=== PATIENT | female | born 1955 | race Caucasian/White ===

== ENCOUNTER 2017-12-04 08:22 | Outpatient (CLI) ==
--- NOTE | 2017-12-04 09:10 | MAMMO ---
EXAM: Bilateral digital screening mammogram (2-D and 3-D) History: Screening Comparison: Bilateral mammogram 03/16/2014 Findings: MLO and CC views of bilateral breasts demonstrate scattered fibroglandular breast parenchy ma. Stable bilateral breast implants. CAD was reviewed by the radiologist. Tomosynthesis was perfo rmed. Stable benign calcifications within the left breast. There is a new asymmetry seen in the sup erior posterior left breast near the axilla and only seen on the MLO view. No suspicious microcalcif ications. Impression: New left breast asymmetry seen only on the MLO view is indeterminate. Recommend further evaluation with spot compression views with tomosynthesis. BIRADS 0
--- NOTE | 2017-12-04 10:53 | DI ---
EXAM: Three views of the left hand. History: Left hand pain. Findings: No acute fracture or dislocation. No abnormal calcifications or radiopaque foreign bodies . Joint spaces are relatively preserved. Impression: No acute osseous abnormality and no significant degenerative joint disease.
== END 2017-12-04 08:23 | disposition home or self-care (01) ==
LOC: RAD 08:22
PROVIDERS: ATTEND Internal Medicine
DX: Z12.31 Encounter for screening mammogram for malignant neoplasm of breast (principal); M79.642 Pain in left hand; M79.645 Pain in left finger(s)
CPT/HCPCS: 77067

== ENCOUNTER 2017-12-11 10:18 | Outpatient (CLI) ==
--- NOTE | 2017-12-11 12:23 | MAMMO ---
EXAM: Begin diagnostic left breast mammogram HISTORY: Left breast asymmetry COMPARISON: None FINDINGS: Digital diagnostic left breast mammogram with MLO view was performed. Tomosynthesis was p erformed. There is a left breast implant. The previously seen asymmetry is no longer present and re presents superimposed fibroglandular tissue. IMPRESSION: Negative left breast mammogram. Annual screening is recommended 1 year. BIRADS category 1, negative
== END 2017-12-11 10:19 | disposition home or self-care (01) ==
LOC: RAD 10:18
PROVIDERS: ATTEND Internal Medicine
DX: N64.89 Other specified disorders of breast (principal)

== ENCOUNTER 2022-04-19 19:51 | Inpatient (IN) ==
[2022-04-19] MEDS ORDERED: SOLU-MEDROL 40 MG IVP STA (20:18)
[2022-04-19] MEDS ORDERED: DUONEB NEB STA (20:18)
[2022-04-19] MEDS ORDERED: ROCEPHIN 1 GM/50 ML D5W 1 GM/50 ML BAG IV ONE (20:18)
--- NOTE | 2022-04-19 20:23 | ED.PDOC ---
General ED Provider: Dr. MEAGAN FUENTES Chief Complaint: Respiratory Complaint Stated Complaint: halley got a cough and my temp is up to 101 Time Seen by Provider: 04/19/22 20:21 Mode of Arrival: Walk-In Information Source: Patient Exam Limitations: No limitations Primary Care Provider: SEBASTIEN QUINTANILLA MD Nursing and Triage Documentation Reviewed and Agree: Yes Does patient meet sepsis criteria?: No System Inflammatory Response Syndrome: Temp 101F or Greater and Pulse >90 BPM Sepsis Protocol: For patient's 13 years and over: Temp is 96.8 and below OR 101 and greater Pulse >90 BPM Resp >20/minute Acutely Altered Mental Status Are patient's symptoms suggestive of a new infection, such as: -Pneumonia -Skin, Soft Tissue -Endocarditis -UTI -Bone, Joint Infection -Implantable Device -Acute Abdominal Infection -Wound Infection -Meningitis -Blood Stream Catheter Infection -Unknown Respiratory Complaint Exam Respiratory Complaint/Exam Onset/Duration: 4 days Symptoms Are: Still present Timing: Constant Initial Severity: Mild Current Severity: Moderate Location: Chest Character: Reports Productive cough Aggravating: Reports URI Alleviating: Reports Bronchodilators Associated Signs and Symptoms: Reports Fever, Chills and URI History of Healthcare-Acquired Pneumonia: No Home Oxygen Use: No Recent Stress Test: No Recent Echo/LV Function: No Current Antibiotic Use: No Current Asthma Medication Use: No Respiratory Distress: None Inadequate Respiratory Effort: No Dysphagia Present: No Stridor Present: No JVD Present: No Accessory Muscle Use: No Retractions: Not Present Diminished Breath Sounds: No Sinus Tenderness: None Grunting Respirations: No Kussmaul Respirations: No Differential Diagnoses: Pneumonia Non-Traumatic Chest Pain Syncope: EKG Performed Review of Systems Review Of Systems Constitutional: Reports Chills and Fever Eyes: Reports No symptoms Ears, Nose, Mouth, Throat: Reports No symptoms Respiratory: Reports Cough Cardiac: Reports No symptoms GI: Reports No symptoms : Reports No symptoms Musculoskeletal: Reports No symptoms Skin: Reports No symptoms Neurological: Reports No symptoms Endocrine: Reports No symptoms Hematologic/Lymphatic: Reports No symptoms All Other Systems: Reviewed and Negative PFSH Female Reproductive History Menstrual Hx Hysterectomy: Yes (1979) Hx Tubal Ligation: No Physical Exam Physical Exam Appearance: Reports Ill-appearing Ill-appearing: Mild Pain Distress: Mild Eyes: Reports PAVEL, EOMI and Conjunctiva clear ENT: Reports Ears normal, Nose normal and Oropharynx normal Neck: Supple Respiratory: Reports Airway patent, Breath sounds clear and Breath sounds equal Cardiovascular: Reports RRR, Pulses normal, No rub and No murmur GI/: Reports Soft, Nontender and No masses Musculoskeletal: Reports Normal strength, ROM intact, No edema and No calf tenderness Skin: Reports Warm, Dry and Normal color Neurological: Reports Sensation intact, Motor intact, Reflexes intact, Cranial nerves intact, Alert and Oriented Psychiatric: Reports Affect appropriate and Mood appropriate Interpretation Radiology Interpretation Radiology Interpretation By: Radiologist Radiology Results: Positive Exam Interpreted: CT Scan EKG Interpretation Time of EKG #1: 20:47 Rate: Tachy Rhythm: Sinus Ectopy: None Delta: NL ST Segment: Normal Interpretation: sinus tachycardia Physician Notification Case Discussed Physician Notified: dr [email or web address] Time of Notification: 22:19 Critical Care Note Critical Care Note Total Critical Care Time (mins): 0 Course Course Hematology/Chemistry: 04/19/22 20:30 04/19/22 20:30 Orders, Labs, Meds: Lab Review 04/19/22 04/19/22 04/19/22 20:30 20:30 20:30 WBC 6.77 RBC 4.59 Hgb 13.3 Hct 41.8 MCV 91.1 MCH 29.0 MCHC 31.8 RDW Coeff of Sade 13.2 Plt Count 203 Immature Gran % (Auto) 0.1 Neut % (Auto) 66.5 Lymph % (Auto) 21.1 [place] % (Auto) 8.7 Eos % (Auto) 3.2 Baso % (Auto) 0.4 Neut # (Auto) 4.5 Lymph # (Auto) 1.4 [place] # (Auto) 0.6 Eos # (Auto) 0.2 Baso # (Auto) 0.0 Immature Gran # (Auto) 0.0 Sodium 140.7 Potassium 3.52 Chloride 104.7 Carbon Dioxide 29.4 Anion Gap 10.12 BUN 18.6 H Creatinine 0.76 Estimated GFR (MDRD) 76.00 BUN/Creatinine Ratio 24.47 Glucose 123.6 H Lactic Acid 1.44 Calcium 8.80 Total Bilirubin 0.41 AST 53.1 H ALT 35.4 H Alkaline Phosphatase 110.2 Total Protein 7.74 Albumin 4.45 Globulin 3.29 Albumin/Globulin Ratio 1.35 Procalcitonin Influ A Molecular Assay Influ B Molecular Assay SARS CoV-2 RNA Rapid KRISTEL 04/19/22 04/19/22 04/19/22 20:30 20:45 20:45 WBC RBC Hgb Hct MCV MCH MCHC RDW Coeff of Sade Plt Count Immature Gran % (Auto) Neut % (Auto) Lymph % (Auto) [place] % (Auto) Eos % (Auto) Baso % (Auto) Neut # (Auto) Lymph # (Auto) [place] # (Auto) Eos # (Auto) Baso # (Auto) Immature Gran # (Auto) Sodium Potassium Chloride Carbon Dioxide Anion Gap BUN Creatinine Estimated GFR (MDRD) BUN/Creatinine Ratio Glucose Lactic Acid Calcium Total Bilirubin AST ALT Alkaline Phosphatase Total Protein Albumin Globulin Albumin/Globulin Ratio Procalcitonin < 0.05 Influ A Molecular Assay Negative by naat Influ B Molecular Assay Negative by naat SARS CoV-2 RNA Rapid KRISTEL Negative Orders Category Date Time Status ABG DRAW REQUEST Stat CARDIO 04/19/22 20:17 Completed EKG-(ED ONLY) Stat CARDIO 04/19/22 20:17 Completed NEBULIZER TREATMENT Stat CARDIO 04/19/22 20:19 Completed ED GED INSTRUCTOR APPLIED .ONCE EMERGENCY 04/19/22 20:17 Active ED IV/MEDIPORT/POWERPORT .ONCE EMERGENCY 04/19/22 20:17 Active ABG COOX Stat LAB 04/19/22 20:17 Ordered BLOOD CULTURE (ED ONLY) Stat LAB 04/19/22 20:30 Received CBC W/ AUTO DIFF Stat LAB 04/19/22 20:30 Completed COMPREHENSIVE METABOLIC PANEL Stat LAB 04/19/22 20:30 Completed FLU A/B MOLECULAR Stat LAB 04/19/22 20:45 Completed LACTIC ACID Stat LAB 04/19/22 20:30 Completed PROCALCITONIN Stat LAB 04/19/22 20:30 Completed SARS COV-2 RNA RAPID KRISTEL Stat LAB 04/19/22 20:45 Completed 0.9 % Sodium Chloride [Saline Flush] MEDS 04/19/22 20:17 Active 1 syr IVF PRN PRN Acetaminophen [Tylenol] MEDS 04/19/22 21:29 Discontinued 650 mg PO ONCE ONE Ceftriaxone/D5w 1 gm Premix [Rocephin 1 gm/50 ml D5w] MEDS 04/19/22 20:18 Discontinued 1 gm in 50 ml IV ONCE Ipratropium/Albuterol Neb [Duoneb] MEDS 04/19/22 20:18 Discontinued 3 ml NEB ONCE STA Methylprednisolone Sod Succ/Pf [Solu-Medrol 40 mg] MEDS 04/19/22 20:18 Discontinued 40 [address]P ONCE STA CT CHEST W/O CONTRAST Stat RADS 04/19/22 20:18 Completed Medications Generic Name Dose Route Start Last Admin Trade Name Freq PRN Reason Stop Dose Admin Sodium Chloride 1 syr 04/19/22 20:17 0.9% Sodium Chloride 10 Ml Disp.Syrin IVF PRN PRN To flush IV Discontinued Medications Generic Name Dose Route Start Last Admin Trade Name Freq PRN Reason Stop Dose Admin Acetaminophen 650 mg 04/19/22 21:29 04/19/22 21:34 Acetaminophen 325 Mg Tablet PO 04/19/22 21:30 650 mg ONCE ONE Administration Albuterol/Ipratropium 3 ml 04/19/22 20:18 04/19/22 20:52 Ipratropium/Albuterol Vial.Neb NEB 04/19/22 20:19 3 ml ONCE STA Administration CEFTRIAXONE/D5W 1 GM PREMIX 1 gm in 50 mls @ 75 mls/hr 04/19/22 20:18 04/19/22 21:14 Rocephin 1 Gm/50 Ml D5w IV 04/19/22 20:57 75 mls/hr ONCE ONE Administration Methylprednisolone Sodium Succinate 40 mg 04/19/22 20:18 04/19/22 21:14 Methylprednisolone Sod Succ/Pf 40 Mg/Ml Vial IVP 04/19/22 20:19 40 mg ONCE STA Administration Vital Signs: Temp Pulse Resp BP Pulse Ox 04/19/22 21:22 101.8 F H 04/19/22 20:02 99.1 F 108 H 20 155/78 H 94 L Discharge Plan Discharge Patient Disposition: ADMITTED INPATIENT Discharge Problem: Community acquired bacterial pneumonia Prescriptions: No Action lansoprazole 15 mg Capsule,Delayed Release(Dr/Ec) 15 mg PO DAILY ondansetron 4 mg tablet,disintegrating 4 mg PO Q8H PRN (Reason: nausea and vomiting) Qty: 20 0RF multivitamin Tablet 1 tab PO QAM hydrocodone-acetaminophen 5-325 mg tablet 1 tab PO DAILY aspirin 81 mg Tablet,Delayed Release (Dr/Ec) 81 mg PO DAILY tramadol 50 mg Tablet 50 mg PO BID PRN (Reason: Pain) ezetimibe 10 mg tablet 10 mg PO DAILY cholecalciferol (vitamin D3) [Vitamin D3] 50 mcg (2,000 unit) Tablet 50 mcg PO DAILY Ozempic 0.25 mg or 0.5 mg(2 mg/1.5 mL) pen injector 0.5 mg SUBCUT WEEKLY Did you review [place] CELLAR SUPERVISOR for ALL controlled substances?: Not Applicable ED Provider: MEAGAN ALVARES Condition: Good Physician Progress Note: []
[2022-04-19 20:39] LABS: BASOPHILS % (AUTO) 0.4 % (0.0-3.0); EOSINOPHILS # (AUTO) 0.2 K/ul (0.0-0.7); EOSINOPHILS % (AUTO) 3.2 % (0.0-7.0); HEMATOCRIT 41.8 % (37.0-47.0); HEMOGLOBIN 13.3 g/dl (12.0-16.0); IMMATURE GRANULOCYTE % (AUTO) 0.1 % (0.0-5.0); LYMPHOCYTES # (AUTO) 1.4 K/uL (0.60-3.4); LYMPHOCYTES % (AUTO) 21.1 (10.0-50.0); MEAN CORPUSCULAR HGB CONC 31.8 (31.8-35.4); MEAN CORPUSCULAR VOLUME 91.1 fl (81.0-99.0); MONOCYTES # (AUTO) 0.6 K/uL (0.4-2.0); MONOCYTES % (AUTO) 8.7 (0-10); NEUTROPHILS # (AUTO) 4.5 K/ul (2.0-6.9); NEUTROPHILS % (AUTO) 66.5 % (42.2-75.2); PLATELET COUNT 203 10^3/uL (140-440); RDW COEFFICIENT OF VARIATION 13.2 % (11.6-14.8); RED BLOOD COUNT 4.59 10^6/ul (4.20-5.40); WHITE BLOOD COUNT 6.77 K/ul (4.6-10.2)
[2022-04-19 20:52] LABS: ALANINE AMINOTRANSFERASE 35.4 U/L (0-35); ALBUMIN 4.45 g/dL (3.5-5.0); ALKALINE PHOSPHATASE 110.2 U/L (53-141); ASPARTATE AMINO TRANSFERASE 53.1 U/L (14-36); BILIRUBIN,TOTAL 0.41 mg/dL (0.2-1.3); BLOOD UREA NITROGEN 18.6 mg/dL (7-17); CALCIUM 8.8 mg/dL (8.4-10.2); CARBON DIOXIDE 29.4 mmol/L (22-30.0); CHLORIDE 104.7 mmol/L (98-107); CREATININE 0.76 mg/dL (0.60-1.30); GLUCOSE 123.6 mg/dL (74-106); POTASSIUM 3.52 mmol/L (3.5-5.1); SODIUM 140.7 mmol/L (134.5-145); TOTAL PROTEIN 7.74 g/dL (6.3-8.2)
--- NOTE | 2022-04-19 21:06 | CT ---
EXAM: CHEST CT WITHOUT CONTRAST HISTORY: Cough, fever TECHNIQUE: CT acquisition of the chest from the thoracic inlet to the upper abdomen without IV contra st administration. CT Dose Reduction Techniques Performed: Yes COMPARISON: None available FINDINGS: Lines, Tubes, Devices: None. Lung Parenchyma and Airways: Central airways are patent without endobronchial lesion. Left upper lobe and lower lobe tree mid nodularity is identified with mild upper lobe patchy consolid ation. Pleural Space: No pleural effusion. No pleural thickening. No pneumothorax. Thoracic Inlet, Mediastinum, and Geraldine: Thyroid gland is normal appearance. No lymphadenopathy. Heart, Vessels, and Pericardium: Normal heart size. No pericardial effusion or pericardial thickening. Mild atherosclerotic calcific ations including coronary arteries. Bones and Soft Tissues: Mild degenerative disc disease. Bilateral breast implants. Upper Abdomen: Small hiatal hernia with mild wall thickening at the GE junction. Status post cholecys tectomy. IMPRESSION: Left lung small airway infection/inflammation with mild superimposed left upper lobe pneumonia. Small hiatal hernia with wall thickening at the GE junction. Recommend follow-up endoscopy to exclud e a mucosal lesion. All CT scans are performed using dose optimization techniques as appropriate to the performed exam an d include at least one of the following: Automated exposure control, adjustment of the mA and/or kV according t o size, and the use of iterative reconstruction technique.
[2022-04-19 21:26] LABS: MOLECULAR FLU A NEGATIVE BY NAAT (NEGATIVE); MOLECULAR FLU B NEGATIVE BY NAAT (NEGATIVE)
[2022-04-19] MEDS ORDERED: TYLENOL PO ONE (21:29)
[2022-04-19 21:42] LABS: SARS COV-2 RNA RAPID NAAT NEGATIVE (NEGATIVE)
[2022-04-19] MEDS ORDERED: ULTRAM PO PRN (22:24)
[2022-04-20] MEDS ORDERED: ATROPINE SULFATE PFS IVP PRN (00:05)
[2022-04-20] MEDS ORDERED: NITROSTAT SL PRN (00:05)
[2022-04-20 00:14] VITALS: BMI 25.7
[2022-04-20 00:32] LABS: BILIRUBIN,URINE Negative (NEGATIVE); CLARITY,URINE Clear (CLEAR); COLOR,URINE Yellow (YELLOW); GLUCOSE, URINE (UA) Negative (NEGATIVE); KETONES,URINE Negative (NEGATIVE); LEUKOCYTE ESTERASE ,URINE Negative (NEGATIVE); NITRITE,URINE Negative (NEGATIVE); PH,URINE 5.5 (5-9); PROTEIN,URINE Negative (NEGATIVE); URINE, BLOOD Negative (NEGATIVE); UROBILINOGEN,URINE 0.2 (0.2)
[2022-04-20] MEDS: DUONEB NEB SCH ×5 (04:55→20:30)
[2022-04-20 06:11] LABS: BASOPHILS % (AUTO) 0.1 % (0.0-3.0); HEMATOCRIT 38.9 % (37.0-47.0); HEMOGLOBIN 12.6 g/dl (12.0-16.0); IMMATURE GRANULOCYTE % (AUTO) 0.3 % (0.0-5.0); LYMPHOCYTES # (AUTO) 0.6 K/uL (0.60-3.4); LYMPHOCYTES % (AUTO) 8.1 (10.0-50.0); MEAN CORPUSCULAR HEMOGLOBIN 29.1 pg (27.0-31.0); MEAN CORPUSCULAR HGB CONC 32.4 (31.8-35.4); MEAN CORPUSCULAR VOLUME 89.8 fl (81.0-99.0); MONOCYTES # (AUTO) 0.1 K/uL (0.4-2.0); MONOCYTES % (AUTO) 1.3 (0-10); NEUTROPHILS # (AUTO) 6.1 K/ul (2.0-6.9); NEUTROPHILS % (AUTO) 90.2 % (42.2-75.2); PLATELET COUNT 187 10^3/uL (140-440); RED BLOOD COUNT 4.33 10^6/ul (4.20-5.40); WHITE BLOOD COUNT 6.76 K/ul (4.6-10.2)
[2022-04-20 06:22] LABS: ALANINE AMINOTRANSFERASE 34.3 U/L (0-35); ALBUMIN 4.17 g/dL (3.5-5.0); ALKALINE PHOSPHATASE 100.7 U/L (53-141); ASPARTATE AMINO TRANSFERASE 54.8 U/L (14-36); BILIRUBIN,TOTAL 0.47 mg/dL (0.2-1.3); BLOOD UREA NITROGEN 17.4 mg/dL (7-17); CALCIUM 8.67 mg/dL (8.4-10.2); CARBON DIOXIDE 26.5 mmol/L (22-30.0); CHLORIDE 108.2 mmol/L (98-107); CREATININE 0.58 mg/dL (0.60-1.30); POTASSIUM 3.84 mmol/L (3.5-5.1); SODIUM 140.7 mmol/L (134.5-145); TOTAL PROTEIN 7.25 g/dL (6.3-8.2)
[2022-04-20 07:13] LABS: ABG PH 7.47 (7.35-7.45); HCO3 27.7 (21-28)
[2022-04-20 07:14] LABS: ABG O2 HGB 95.7 % (95-100); COHb 1.1 (0.5-1.5); MetHb 0.9 (0-1.5); TCO2 28.9 (19-24); sO2 96.7 % (94-98)
[2022-04-20] MEDS: TESSALON PERLES PO PRN (07:26)
[2022-04-20] MEDS: TYLENOL PO PRN (07:31)
[2022-04-20] MEDS: SOLU-MEDROL 40 MG IVP SCH ×2 (08:30→21:24)
[2022-04-20] MEDS ORDERED: NORCO 5-325 PO SCH (09:00)
[2022-04-20] MEDS: ASPIRIN EC PO SCH (09:01)
[2022-04-20] MEDS: ZETIA PO SCH (09:01)
[2022-04-20] MEDS: VITAMIN D PO SCH (09:01)
[2022-04-20] MEDS: LOVENOX SUBCUT SCH (09:01)
[2022-04-20] MEDS: PROTONIX PO SCH (09:01)
[2022-04-20] MEDS: DOXY-100 100 MG in SODIUM CHLORIDE 100ML 100 ML IV SCH ×4 (09:02→21:13)
[2022-04-20] MEDS: PHENERGAN WITH CODEINE 6.25/10 MG/5 ML PO PRN ×2 (13:41→21:16)
[2022-04-20] MEDS: CARDIZEM PO SCH (20:07)
[2022-04-20] MEDS: ROCEPHIN 1 GM/50 ML D5W 1 GM/50 ML BAG IV SCH (20:07)
[2022-04-21] MEDS: DUONEB NEB SCH ×4 (05:18→20:45)
[2022-04-21 05:38] LABS: BASOPHILS % (AUTO) 0.1 % (0.0-3.0); EOSINOPHILS % (AUTO) 0.1 % (0.0-7.0); HEMOGLOBIN 12.4 g/dl (12.0-16.0); IMMATURE GRANULOCYTE # (AUTO) 0.1 (0.0-1.0); IMMATURE GRANULOCYTE % (AUTO) 0.7 % (0.0-5.0); LYMPHOCYTES # (AUTO) 0.9 K/uL (0.60-3.4); LYMPHOCYTES % (AUTO) 8.6 (10.0-50.0); MEAN CORPUSCULAR HEMOGLOBIN 29.5 pg (27.0-31.0); MEAN CORPUSCULAR HGB CONC 32.6 (31.8-35.4); MEAN CORPUSCULAR VOLUME 90.5 fl (81.0-99.0); MONOCYTES # (AUTO) 0.6 K/uL (0.4-2.0); MONOCYTES % (AUTO) 5.5 (0-10); NEUTROPHILS # (AUTO) 8.5 K/ul (2.0-6.9); PLATELET COUNT 217 10^3/uL (140-440); RDW COEFFICIENT OF VARIATION 13.2 % (11.6-14.8)
[2022-04-21] MEDS: PHENERGAN WITH CODEINE 6.25/10 MG/5 ML PO PRN ×3 (05:52→20:37)
[2022-04-21 05:53] LABS: ALANINE AMINOTRANSFERASE 31.7 U/L (0-35); ALBUMIN 3.93 g/dL (3.5-5.0); ALKALINE PHOSPHATASE 92.4 U/L (53-141); ASPARTATE AMINO TRANSFERASE 41.4 U/L (14-36); BILIRUBIN,TOTAL 0.33 mg/dL (0.2-1.3); BLOOD UREA NITROGEN 20.4 mg/dL (7-17); CALCIUM 8.97 mg/dL (8.4-10.2); CARBON DIOXIDE 26.6 mmol/L (22-30.0); CHLORIDE 108.3 mmol/L (98-107); CREATININE 0.64 mg/dL (0.60-1.30); GLUCOSE 204.8 mg/dL (74-106); POTASSIUM 4.11 mmol/L (3.5-5.1); SODIUM 140.7 mmol/L (134.5-145); TOTAL PROTEIN 6.96 g/dL (6.3-8.2)
[2022-04-21 06:20] LABS: THYROID STIMULATING HORMONE 0.266 uIU/L (0.465-4.68)
[2022-04-21] MEDS ORDERED: SOLU-MEDROL 40 MG IVP SCH (09:00)
[2022-04-21] MEDS: ASPIRIN EC PO SCH (09:42)
[2022-04-21] MEDS: ZETIA PO SCH (09:43)
[2022-04-21] MEDS: VITAMIN D PO SCH (09:43)
[2022-04-21] MEDS: CARDIZEM PO SCH ×2 (09:44→20:38)
[2022-04-21] MEDS: SOLU-MEDROL 125 MG IVP SCH ×2 (09:44→20:38)
[2022-04-21] MEDS: PROTONIX PO SCH (09:44)
[2022-04-21] MEDS: LOVENOX SUBCUT SCH (09:51)
[2022-04-21] MEDS: DOXY-100 100 MG in SODIUM CHLORIDE 100ML 100 ML IV SCH ×2 (09:54→21:30)
--- NOTE | 2022-04-21 10:48 | PCM.PROG ---
Attending Provider: ATTENDING PROVIDER: Dr. SEBASTIEN SMITH MD This patient is seen with Amanda Clay, Nurse Practitioner. DATE OF SERVICE: 04/21/22 SUBJECTIVE: This 66 year old /WHITE F was hospitalized 04/19/22. No fever today. Appetite has improved. Still very wheezy today and short of breath. REVIEW OF SYSTEMS: CONSTITUTIONAL: No night sweats. No fatigue, malaise, lethargy. No fever or chills. HEENT: Eyes: No visual changes. No eye pain. No eye discharge. ENT: No runny nose. No epistaxis. No sinus pain. No odynophagia. No congestion. RESPIRATORY: Cough, no congestion. No hemoptysis. Shortness of breath. Wheezing. CARDIOVASCULAR: No angina symptoms. No CHF symptoms. No atypical chest pain for CAD. No palpitations. No orthopnea.. GASTROINTESTINAL: No abdominal pain. No nausea or vomiting. No diarrhea or constipation. No hematemesis. No hematochezia. GENITOURINARY: No urgency. No frequency. No dysuria. No hematuria. No obstructive symptoms. No discharge. No pain. No significant abnormal bleeding. MUSCULOSKELETAL: No musculoskeletal pain; no joint swelling. NEUROLOGICAL: Awake, alert, oriented to time, place and person. No headache. No neck pain. No syncope. No seizures. No dizziness. PSYCHIATRIC: Not anxious. No depression. No suicidal thoughts. No homicidal thoughts. SKIN: No rash. No lesions. No wounds. ENDOCRINE: No unexplained weight loss. No weight gain. HEMATOLOGIC/LYMPHATIC: No anemia. No purpura. No petechiae. No prolonged or excessive bleeding. No palpable lymph nodes. PHYSICAL EXAMINATION: GENERAL: The patient is awake, alert and oriented, lying in bed in no distress. VITAL SIGNS: Temperature 97.2 F, Pulse 88, Respiratory Rate 18, BP 126/75, Pulse Ox 98% HEENT: Head normocephalic, atraumatic. Eyes: Extraocular muscles are intact. Pupils are equal, round and reactive to light and accommodation. Ears: No lesions. Nose appeared normal. Throat: No exudate or erythema. NECK: Supple. No JVD, no carotid bruit. No lymphadenopathy or thyromegaly. LUNGS: Severely diminished breath sounds with bilateral inspiratory and expiratory wheezing. Rales On the left. Clear to auscultation. Percussion note normal. Chest symmetrical. HEART: S1, S2, no S3. No murmurs. No cyanosis or clubbing. No ascites. Pulses: Dorsalis pedis and posterior tibial pulses +1 to +2 both sides. ABDOMEN: Soft. Non-tender. Bowel sounds active. No CVA tenderness. No mass felt. EXTREMITIES: No edema. Full range of motion of all extremities, equal. NEUROLOGIC: No focal deficit. Cranial nerves II through XII are grossly intact. No headache. No double vision. SKIN: Not dry. Intact. Turgor-normal. LYMPHATIC: No palpable lymph nodes/no lymphedema. MUSCULOSKELETAL: Normal joints with no swelling. Muscle tone is normal. LAB REVIEW: 04/21/22 05:09 04/21/22 05:09 04/21/22 05:09: Free T4 0.97 04/21/22 05:09: Hemoglobin A1c 5.90 04/21/22 05:09: Sodium 140.7, Potassium 4.11, Chloride 108.3 H, Carbon Dioxide 26.6, Anion Gap 9.91, BUN 20.4 H, Creatinine 0.64, Estimated GFR (MDRD) 93.00, BUN/Creatinine Ratio 31.87, Glucose 204.8 H, Calcium 8.97, Total Bilirubin 0.33, AST 41.4 H, ALT 31.7, Alkaline Phosphatase 92.4, Total Protein 6.96, Albumin 3.93, Globulin 3.03, Albumin/Globulin Ratio 1.29, TSH 0.266 L 04/21/22 05:09: WBC 10.00, RBC 4.20, Hgb 12.4, Hct 38.0, MCV 90.5, MCH 29.5, MCHC 32.6, RDW Coeff of Sade 13.2, Plt Count 217, Immature Gran % (Auto) 0.7, Neut % (Auto) 85.0 H, Lymph % (Auto) 8.6 L, [place] % (Auto) 5.5, Eos % (Auto) 0.1, Baso % (Auto) 0.1, Neut # (Auto) 8.5 H, Lymph # (Auto) 0.9, [place] # (Auto) 0.6, Eos # (Auto) 0.0, Baso # (Auto) 0.0, Immature Gran # (Auto) 0.1 ASSESSMENT: Please see below. 1. Left lower pneu 2. Shortness of breath 3. Diabetes mellitus PLAN: 1. Add Pulmicort 0.5mg BID NEB 2. Increase Solu-Medrol 80mg IV Q 12 hours Plan and coordination of the patient's care discussed in the presence of Miter Saw Operator and nurse. SCRIBED BY: Sharon EASLEY scribed while in presence of service performed by Amanda Clay APRN on 04/21/22 ([id number])
[2022-04-21] MEDS ORDERED: OCEAN NASAL SPRAY NAS PRN (11:30)
[2022-04-21] MEDS: NORCO 5-325 PO PRN (15:40)
[2022-04-21] MEDS: ROCEPHIN 1 GM/50 ML D5W 1 GM/50 ML BAG IV SCH (20:41)
[2022-04-21] MEDS: PULMICORT 0.5 MG/2 ML NEB SCH (20:50)
[2022-04-22] MEDS: DUONEB NEB SCH ×4 (04:55→19:20)
[2022-04-22] MEDS: PULMICORT 0.5 MG/2 ML NEB SCH ×2 (04:55→19:20)
[2022-04-22 05:12] LABS: BASOPHILS % (AUTO) 0.1 % (0.0-3.0); HEMATOCRIT 36.1 % (37.0-47.0); HEMOGLOBIN 11.5 g/dl (12.0-16.0); IMMATURE GRANULOCYTE # (AUTO) 0.1 (0.0-1.0); IMMATURE GRANULOCYTE % (AUTO) 1.1 % (0.0-5.0); LYMPHOCYTES # (AUTO) 1.1 K/uL (0.60-3.4); LYMPHOCYTES % (AUTO) 11.1 (10.0-50.0); MEAN CORPUSCULAR HGB CONC 31.9 (31.8-35.4); MEAN CORPUSCULAR VOLUME 90.9 fl (81.0-99.0); MONOCYTES # (AUTO) 0.5 K/uL (0.4-2.0); MONOCYTES % (AUTO) 4.7 (0-10); NEUTROPHILS # (AUTO) 8.4 K/ul (2.0-6.9); PLATELET COUNT 204 10^3/uL (140-440); RDW COEFFICIENT OF VARIATION 13.1 % (11.6-14.8); RED BLOOD COUNT 3.97 10^6/ul (4.20-5.40); WHITE BLOOD COUNT 10.13 K/ul (4.6-10.2)
[2022-04-22 05:39] LABS: ALANINE AMINOTRANSFERASE 49.7 U/L (0-35); ALBUMIN 3.63 g/dL (3.5-5.0); ASPARTATE AMINO TRANSFERASE 55.9 U/L (14-36); BILIRUBIN,TOTAL 0.24 mg/dL (0.2-1.3); CALCIUM 9.21 mg/dL (8.4-10.2); CARBON DIOXIDE 27.5 mmol/L (22-30.0); CHLORIDE 107.4 mmol/L (98-107); CREATININE 0.69 mg/dL (0.60-1.30); GLUCOSE 257.6 mg/dL (74-106); POTASSIUM 4.22 mmol/L (3.5-5.1); SODIUM 140.2 mmol/L (134.5-145); TOTAL PROTEIN 6.41 g/dL (6.3-8.2)
[2022-04-22] MEDS: PHENERGAN WITH CODEINE 6.25/10 MG/5 ML PO PRN ×2 (07:21→22:44)
[2022-04-22] MEDS: ZETIA PO SCH (09:26)
[2022-04-22] MEDS: DOXY-100 100 MG in SODIUM CHLORIDE 100ML 100 ML IV SCH ×2 (09:26→20:50)
[2022-04-22] MEDS: ASPIRIN EC PO SCH (09:26)
[2022-04-22] MEDS: PROTONIX PO SCH (09:27)
[2022-04-22] MEDS: VITAMIN D PO SCH (09:27)
[2022-04-22] MEDS: CARDIZEM PO SCH ×2 (09:27→20:01)
[2022-04-22] MEDS: LOVENOX SUBCUT SCH (09:29)
--- NOTE | 2022-04-22 09:34 | PCM.PROG ---
Attending Provider: ATTENDING PROVIDER: Dr. SEBASTIEN SMITH MD This patient is seen with Amanda Clay, Nurse Practitioner. DATE OF SERVICE: 04/22/22 SUBJECTIVE: This 66 year old /WHITE F was hospitalized 04/19/22. Did not have a good night. She had lower O2 less than 90% requiring oxygen at 2 liters. Very short of breath and exhausted with any sort of exertion. WBC is back up to 10,000. Having vomiting. We will repeat CT today. REVIEW OF SYSTEMS: CONSTITUTIONAL: No night sweats. No fatigue, malaise, lethargy. No fever or chills. Weakness. HEENT: Eyes: No visual changes. No eye pain. No eye discharge. ENT: No runny nose. No epistaxis. No sinus pain. No odynophagia. No congestion. RESPIRATORY: Cough, no congestion. No hemoptysis. Shortness of breath. CARDIOVASCULAR: No angina symptoms. No CHF symptoms. No atypical chest pain for CAD. No palpitations. No orthopnea.. GASTROINTESTINAL: No abdominal pain. Vomiting. No diarrhea or constipation. No hematemesis. No hematochezia. GENITOURINARY: No urgency. No frequency. No dysuria. No hematuria. No obstructive symptoms. No discharge. No pain. No significant abnormal bleeding. MUSCULOSKELETAL: No musculoskeletal pain; no joint swelling. NEUROLOGICAL: Awake, alert, oriented to time, place and person. No headache. No neck pain. No syncope. No seizures. No dizziness. PSYCHIATRIC: Not anxious. No depression. No suicidal thoughts. No homicidal thoughts. SKIN: No rash. No lesions. No wounds. ENDOCRINE: No unexplained weight loss. No weight gain. HEMATOLOGIC/LYMPHATIC: No anemia. No purpura. No petechiae. No prolonged or excessive bleeding. No palpable lymph nodes. PHYSICAL EXAMINATION: GENERAL: The patient is awake, alert and oriented, lying in bed in no distress. VITAL SIGNS: Temperature 97.8 F, Pulse 85, Respiratory Rate 18, BP 129/80, Pulse Ox 96% HEENT: Head normocephalic, atraumatic. Eyes: Extraocular muscles are intact. Pupils are equal, round and reactive to light and accommodation. Ears: No lesions. Nose appeared normal. Throat: No exudate or erythema. NECK: Supple. No JVD, no carotid bruit. No lymphadenopathy or thyromegaly. LUNGS: Severely diminished breath sounds with rales upper left. Rhonchi on right bilateral expiratory wheezing. Clear to auscultation. Percussion note normal. Chest symmetrical. HEART: S1, S2, no S3. No murmurs. No cyanosis or clubbing. No ascites. Pulses: Dorsalis pedis and posterior tibial pulses +1 to +2 both sides. ABDOMEN: Soft. Non-tender. Bowel sounds active. No CVA tenderness. No mass felt. EXTREMITIES: No edema. Full range of motion of all extremities, equal. NEUROLOGIC: No focal deficit. Cranial nerves II through XII are grossly intact. No headache. No double vision. SKIN: Not dry. Intact. Turgor-normal. LYMPHATIC: No palpable lymph nodes/no lymphedema. MUSCULOSKELETAL: Normal joints with no swelling. Muscle tone is normal. LAB REVIEW: 04/22/22 04:44 04/22/22 04:44 04/22/22 04:44: Sodium 140.2, Potassium 4.22, Chloride 107.4 H, Carbon Dioxide 27.5, Anion Gap 9.52, BUN 26.0 H, Creatinine 0.69, Estimated GFR (MDRD) 85.00, BUN/Creatinine Ratio 37.68, Glucose 257.6 H D, Calcium 9.21, Total Bilirubin 0.24, AST 55.9 H, ALT 49.7 H, Alkaline Phosphatase 88.0, Total Protein 6.41, Albumin 3.63, Globulin 2.78, Albumin/Globulin Ratio 1.30 04/22/22 04:44: WBC 10.13, RBC 3.97 L, Hgb 11.5 L, Hct 36.1 L, MCV 90.9, MCH 29.0, MCHC 31.9, RDW Coeff of Sade 13.1, Plt Count 204, Immature Gran % (Auto) 1.1, Neut % (Auto) 83.0 H, Lymph % (Auto) 11.1, [place] % (Auto) 4.7, Eos % (Auto) 0.0, Baso % (Auto) 0.1, Neut # (Auto) 8.4 H, Lymph # (Auto) 1.1, [place] # (Auto) 0.5, Eos # (Auto) 0.0, Baso # (Auto) 0.0, Immature Gran # (Auto) 0.1 ASSESSMENT: Please see below. 1. Left lobar pneumonia 2. Acute respiratory failure 3. Anemia PLAN: 1. Repeat CT chest with and without 2. Steroids 100mg Q 8 hours 3. Singulair 10mg Plan and coordination of the patient's care discussed in the presence of Ring Conductor and nurse. SCRIBED BY: Sharon EASLEY scribed while in presence of service performed by Amanda Clay APRN on 04/22/22 ([id number])
[2022-04-22] MEDS: SINGULAIR PO SCH (09:53)
[2022-04-22] MEDS: TESSALON PERLES PO PRN ×2 (10:15→16:06)
[2022-04-22] MEDS: SOLU-MEDROL 125 MG IVP SCH ×4 (10:23→21:27)
[2022-04-22] MEDS: SODIUM CHLORIDE 1,000 ML IV SCH (10:50)
[2022-04-22 13:00] LABS: ABG O2 HGB 96.2 % (95-100); ABG PH 7.46 (7.35-7.45); BEecf 3.2 (-2.0-3.0); COHb 1.6 (0.5-1.5); MetHb 0.6 (0-1.5); TCO2 28.2 (19-24); sO2 96.4 % (94-98); tHb 9.1 g/dl (11.7-17.4)
--- NOTE | 2022-04-22 13:17 | CT ---
EXAM: CHEST CT WITH AND WITHOUT INTRAVENOUS CONTRAST HISTORY: Shortness of breath. TECHNIQUE: CT acquisition of the chest from the thoracic inlet to the upper abdomen without and with IV contrast administration. 2-D coronal and sagittal reformatted images were obtained from the axial source images. CT Dose Reduction Techniques Performed: Yes. COMPARISON: None. FINDINGS: Lung Parenchyma and Airways: No significant change in peribronchial nodularity in the left lung. No development of confluent infiltrate. No suspicious pulmonary nodule. The tracheobronchial tree is pa tent. Pleural Space: No pleural effusion or thickening. No pneumothorax. Thoracic Inlet, Mediastinum, and Geraldine: No mass. Stable enlarged right infrahilar lymph node measurin g 1.6 x 1.1 cm. No new or enlarging adenopathy Heart, Vessels, and Pericardium: The main pulmonary artery is normal caliber. There is no central pu lmonary embolism. The thoracic aorta is not dilated. The heart chambers are not enlarged. There is no pericardial effusion or thickening. There are coronary vascular calcifications. Bones and Soft Tissues: Visualized bones are within normal limits. Chest wall soft tissues are unrem arkable. Upper Abdomen: Small hiatal hernia. Cholecystectomy. IMPRESSION: 1. No significant change in left lung bronchopneumonia/bronchiolitis. 2. Stable right infrahilar lymph node. 3. Coronary disease and hiatal hernia. All CT scans are performed using dose optimization techniques as appropriate to the performed exam an d include at least one of the following: Automated exposure control, adjustment of the mA and/or kV according t o size, and the use of iterative reconstruction technique.
--- NOTE | 2022-04-22 16:26 | HP ---
DATE OF SERVICE: 04/19/22 REASON FOR HOSPITALIZATION: Pneumonia HISTORY OF PRESENT ILLNESS: 66 year old white female came to the emergency room with cough, congestion, shortness of breath of nearly 3-4 days duration. The patient had high fever four hours before she came to the emergency room. The patient's fever was 101 in the emergency room. PAST MEDICAL HISTORY: Dyslipidemia Borderline obesity History of esophageal reflux disease Chronic lung disease Hyperglycemia REVIEW OF SYSTEMS: CONSTITUTIONAL: Weakness and fatigue. . HEENT: Eyes: No visual changes. No eye pain. No eye discharge. ENT: No runny nose. No epistaxis. No sinus pain. No sore throat. No odynophagia. No ear pain. No congestion. RESPIRATORY: No hemoptysis. Shortness of breath with cough and congestion. Mostly dry cough. . CARDIOVASCULAR: Shortness of breath. No angina symptoms. No CHF symptoms. No atypical chest pain for CAD. No palpitations. No PND. No orthopnea. GASTROINTESTINAL: Poor appetite for the past 2-3 days. No nausea or vomiting. GENITOURINARY: No urgency. No frequency. No dysuria. No hematuria. No obstructive symptoms. No discharge. No pain. No significant abnormal bleeding. MUSCULOSKELETAL: Weakness and achy feeling. . NEUROLOGICAL: No headache. No neck pain. No syncope. No seizures. No dizziness. PSYCHIATRIC: Not anxious. No depression. No suicidal thoughts. No homicidal thoughts. SKIN: No rash. No lesions. No wounds. ENDOCRINE: No unexplained weight loss. No weight gain. HEMATOLOGIC/LYMPHATIC: No anemia. No purpura. No petechiae. No prolonged or excessive bleeding. No palpable lymph nodes. PERSONAL/FAMILY/SOCIAL HISTORY: Patient is and lives with her . Nonsmoker and no alcohol abuse. She does all activities of daily living. She used to be an RN. MEDICATIONS: Lansoprazole 15 mg Q a.m. Zofran 4 mg Q 8 for nausea Aspirin 81 Ozempic Vitamin D3 Ezetimibe Hydrocodone 5-325 one a day Ozempic 0.5 mg weekly Tramadol 50 mg PO twice a day ALLERGIES: Morphine, Sulfa, Tetanus PHYSICAL EXAMINATION: GENERAL: The patient is oriented to time, place and person. Patient is in no distress. VITAL SIGNS: Temperature 101, pulse 110, respiratory rate 18, blood pressure 110/80, pulse ox 95% HEENT: Head normocephalic, atraumatic. Eyes: Extraocular muscles are intact. Pupils are equal, round and reactive to light and accommodation. Ears: No lesions. Nose appeared normal. Throat: No exudate or erythema. NECK: Supple. No JVD, no carotid bruit. No lymphadenopathy or thyromegaly. LUNGS: Decreased breath sounds with mild expiratory wheeze. . HEART: S1, S2. Tachycardia. ABDOMEN: Soft. EXTREMITIES: No pedal edema. NEUROLOGIC: No focal deficit. Cranial nerves II through XII are grossly intact. No headache, no double vision or headache. SKIN: Not dry. Intact. Turgor - normal. LYMPHATIC: No palpable lymph nodes/no lymphedema. MUSCULOSKELETAL: Normal joints with no swelling. Muscle tone is normal. LABS: Glucose 123 on admission, hemoglobin 13, hematocrit 41, WBC 6,700, normal differential, creatinine 0.7, BUN 18, potassium 3.5, alkaline phosphatase normal. Chest x-ray showed pneumonia, left upper lobe. ASSESSMENT: 1. Community acquired pneumonia seems to be viral 2. History of chronic lung disease 3. Hyperglycemia 4. Dyslipidemia PLAN: 1. Admit patient 2. IV steroids, Rocephin and Doxycycline 3. Telemetry 4. Tessalon Perles for cough 5. Pantoprazole 40 PO Q a.m. 6. Tramadol for pain TIME SPENT: More than 75 minutes. MTDD
[2022-04-22 16:27] LABS: RSV MOLECULAR NEGATIVE BY NAAT (NEGATIVE)
--- NOTE | 2022-04-22 16:34 | PN ---
DATE OF SERVICE: 04/20/22 SUBJECTIVE: 66 year old white female hospitalized with pneumonia. Patient's condition seems to be improved some but she is constantly coughing. Her hydration status has improved. Her appetite is somewhat better. She was unable to rest because of constant coughing. REVIEW OF SYSTEMS: CONSTITUTIONAL: Weakness and fatigue and achy. HEENT: Eyes: No visual changes. No eye pain. No eye discharge. ENT: No runny nose. No epistaxis. No sinus pain. No sore throat. No odynophagia. No congestion. RESPIRATORY: Constant dry cough. CARDIOVASCULAR: No angina symptoms. No CHF symptoms. No atypical chest pain for CAD. No palpitations. No PND. No orthopnea. GASTROINTESTINAL: No abdominal pain. No nausea or vomiting. No diarrhea or constipation. No hematemesis. No hematochezia. GENITOURINARY: No urgency. No frequency. No dysuria. No hematuria. No obstructive symptoms. No discharge. No pain. No significant abnormal bleeding. MUSCULOSKELETAL: No musculoskeletal pain; no joint swelling. NEUROLOGICAL: No headache. No neck pain. No syncope. No seizures. No dizziness. PSYCHIATRIC: Not anxious. No depression. No suicidal thoughts. No homicidal thoughts. SKIN: No rash. No lesions. No wounds. ENDOCRINE: No unexplained weight loss. No weight gain. HEMATOLOGIC/LYMPHATIC: No anemia. No purpura. No petechiae. No prolonged or excessive bleeding. No palpable lymph nodes. PHYSICAL EXAMINATION: GENERAL: The patient is in no distress. VITAL SIGNS: Temperature 97, pulse 80, respiratory rate 18, blood pressure 108/67, pulse ox 95% HEENT: Head normocephalic, atraumatic. Eyes: Extraocular muscles are intact. Pupils are equal, round and reactive to light and accommodation. Ears: No lesions. Nose appeared normal. Throat: No exudate or erythema. NECK: Supple. No JVD, no carotid bruit. No lymphadenopathy or thyromegaly. LUNGS: Decreased breath sounds, mild wheeze. . HEART: S1, S2, no S3. No murmurs. No cyanosis or clubbing. No ascites. Pulses: Dorsalis pedis and posterior tibial pulses +1 to +2 bilaterally. ABDOMEN: Soft. Nontender. Bowel sounds active. No CVA tenderness. No mass felt. EXTREMITIES: No edema. Full range of motion of all extremities, equal. NEUROLOGIC: No focal deficit. Cranial nerves II through XII are grossly intact. No headache. No double vision. SKIN: Not dry. Intact. Turgor - normal. LYMPHATIC: No palpable lymph nodes/no lymphedema. MUSCULOSKELETAL: Normal joints with no swelling. Muscle tone is normal. ASSESSMENT: Pneumonia seems to be stable with some improvement in hydration status. Still coughing which is distressing. Blood sugar was 239, made worse by steroids. PLAN: 1. Will add Phenergan with codeine with Dena Garcia 2. Continue antibiotics and steroids 3. Will continue to monitor blood sugar, do an A1C Condition: Stable TIME SPENT: More than 35 minutes. Plan and coordination of the patient's care discussed in the presence of nurse. JADE
[2022-04-22] MEDS: ROCEPHIN 1 GM/50 ML D5W 1 GM/50 ML BAG IV SCH (20:00)
[2022-04-23] MEDS: PULMICORT 0.5 MG/2 ML NEB SCH ×2 (04:35→20:00)
[2022-04-23] MEDS: DUONEB NEB SCH ×4 (04:35→20:00)
[2022-04-23] MEDS: SOLU-MEDROL 125 MG IVP SCH ×3 (04:59→20:08)
[2022-04-23 05:09] LABS: BASOPHILS % (AUTO) 0.2 % (0.0-3.0); EOSINOPHILS % (AUTO) 0.1 % (0.0-7.0); IMMATURE GRANULOCYTE # (AUTO) 0.3 (0.0-1.0); IMMATURE GRANULOCYTE % (AUTO) 3.1 % (0.0-5.0); LYMPHOCYTES # (AUTO) 1.4 K/uL (0.60-3.4); LYMPHOCYTES % (AUTO) 13.9 (10.0-50.0); MEAN CORPUSCULAR HEMOGLOBIN 29.8 pg (27.0-31.0); MEAN CORPUSCULAR HGB CONC 33.3 (31.8-35.4); MEAN CORPUSCULAR VOLUME 89.4 fl (81.0-99.0); MONOCYTES # (AUTO) 0.5 K/uL (0.4-2.0); MONOCYTES % (AUTO) 5.1 (0-10); NEUTROPHILS # (AUTO) 7.8 K/ul (2.0-6.9); NEUTROPHILS % (AUTO) 77.6 % (42.2-75.2); PLATELET COUNT 201 10^3/uL (140-440); RDW COEFFICIENT OF VARIATION 13.1 % (11.6-14.8); RED BLOOD COUNT 3.69 10^6/ul (4.20-5.40); WHITE BLOOD COUNT 10.11 K/ul (4.6-10.2)
[2022-04-23 05:19] LABS: ALANINE AMINOTRANSFERASE 67.2 U/L (0-35); ALBUMIN 3.51 g/dL (3.5-5.0); ALKALINE PHOSPHATASE 83.6 U/L (53-141); ASPARTATE AMINO TRANSFERASE 50.9 U/L (14-36); BILIRUBIN,TOTAL 0.24 mg/dL (0.2-1.3); BLOOD UREA NITROGEN 28.3 mg/dL (7-17); CALCIUM 8.72 mg/dL (8.4-10.2); CARBON DIOXIDE 27.2 mmol/L (22-30.0); CHLORIDE 107.2 mmol/L (98-107); CREATININE 0.75 mg/dL (0.60-1.30); GLUCOSE 255.1 mg/dL (74-106); POTASSIUM 3.73 mmol/L (3.5-5.1); SODIUM 140.1 mmol/L (134.5-145); TOTAL PROTEIN 6.03 g/dL (6.3-8.2)
[2022-04-23] MEDS: PROTONIX PO SCH (05:33)
[2022-04-23] MEDS: VITAMIN D PO SCH (08:15)
[2022-04-23] MEDS: ZETIA PO SCH (08:17)
[2022-04-23] MEDS: SINGULAIR PO SCH (08:18)
[2022-04-23] MEDS: DOXY-100 100 MG in SODIUM CHLORIDE 100ML 100 ML IV SCH (08:18)
[2022-04-23] MEDS: ASPIRIN EC PO SCH (08:18)
[2022-04-23] MEDS: CARDIZEM PO SCH ×2 (08:22→20:52)
[2022-04-23] MEDS: TYLENOL PO PRN (08:24)
[2022-04-23] MEDS: LOVENOX SUBCUT SCH (08:25)
[2022-04-23] MEDS ORDERED: XANAX PO ONE (10:15)
[2022-04-23] MEDS: TORADOL IVP PRN (10:43)
[2022-04-23] MEDS: PHENERGAN WITH CODEINE 6.25/10 MG/5 ML PO PRN (12:08)
[2022-04-23] MEDS: MUCINEX DM ER 600-30 MG TABLET PO SCH ×2 (12:08→20:52)
--- NOTE | 2022-04-23 14:17 | PN ---
DATE OF SERVICE: 04/21/22 SUBJECTIVE: Patient was seen and examined with the nurse practitioner. Patient has no fever noted. Patient is still coughing. Her overall condition seems to be stable and improving. She has a dry cough. REVIEW OF SYSTEMS: CONSTITUTIONAL: No night sweats. No fatigue, malaise, lethargy. No fever or chills. HEENT: Eyes: No visual changes. No eye pain. No eye discharge. ENT: No runny nose. No epistaxis. No sinus pain. No sore throat. No odynophagia. No congestion. RESPIRATORY: Dry cough. CARDIOVASCULAR: No angina symptoms. No CHF symptoms. No atypical chest pain for CAD. No palpitations. No PND. No orthopnea. GASTROINTESTINAL: No abdominal pain. No nausea or vomiting. No diarrhea or constipation. No hematemesis. No hematochezia. GENITOURINARY: No urgency. No frequency. No dysuria. No hematuria. No obstructive symptoms. No discharge. No pain. No significant abnormal bleeding. MUSCULOSKELETAL: No musculoskeletal pain; no joint swelling. NEUROLOGICAL: No headache. No neck pain. No syncope. No seizures. No dizziness. PSYCHIATRIC: Not anxious. No depression. No suicidal thoughts. No homicidal thoughts. SKIN: No rash. No lesions. No wounds. ENDOCRINE: No unexplained weight loss. No weight gain. HEMATOLOGIC/LYMPHATIC: No anemia. No purpura. No petechiae. No prolonged or excessive bleeding. No palpable lymph nodes. PHYSICAL EXAMINATION: GENERAL: The patient is in no distress. HEENT: Head normocephalic, atraumatic. Eyes: Extraocular muscles are intact. Pupils are equal, round and reactive to light and accommodation. Ears: No lesions. Nose appeared normal. Throat: No exudate or erythema. NECK: Supple. No JVD, no carotid bruit. No lymphadenopathy or thyromegaly. LUNGS: Clear to auscultation. Percussion note normal. Chest symmetrical. HEART: S1, S2, no S3. No murmurs. No cyanosis or clubbing. No ascites. Pulses: Dorsalis pedis and posterior tibial pulses +1 to +2 bilaterally. ABDOMEN: Soft. Nontender. Bowel sounds active. No CVA tenderness. No mass felt. EXTREMITIES: No edema. Full range of motion of all extremities, equal. NEUROLOGIC: No focal deficit. Cranial nerves II through XII are grossly intact. No headache. No double vision. SKIN: Not dry. Intact. Turgor - normal. LYMPHATIC: No palpable lymph nodes/no lymphedema. MUSCULOSKELETAL: Normal joints with no swelling. Muscle tone is normal. TIME SPENT: More than 35 minutes. Plan and coordination of the patient's care discussed in the presence of nurse. JADE
--- NOTE | 2022-04-23 14:21 | PN ---
DATE OF SERVICE: 04/22/22 SUBJECTIVE: Patient was seen and examined with the nurse practitioner. Patient has continued to cough, a dry cough. She is afebrile. Patient had CT scan of the done and we are waiting for report. ABG on room air ordered. Patient's appetite is fair. REVIEW OF SYSTEMS: CONSTITUTIONAL: No night sweats. No fatigue, malaise, lethargy. No fever or chills. HEENT: Eyes: No visual changes. No eye pain. No eye discharge. ENT: No runny nose. No epistaxis. No sinus pain. No sore throat. No odynophagia. No congestion. RESPIRATORY: Dry cough. CARDIOVASCULAR: No angina symptoms. No CHF symptoms. No atypical chest pain for CAD. No palpitations. No PND. No orthopnea. GASTROINTESTINAL: No abdominal pain. No nausea or vomiting. No diarrhea or constipation. No hematemesis. No hematochezia. GENITOURINARY: No urgency. No frequency. No dysuria. No hematuria. No obstructive symptoms. No discharge. No pain. No significant abnormal bleeding. MUSCULOSKELETAL: No musculoskeletal pain; no joint swelling. NEUROLOGICAL: No headache. No neck pain. No syncope. No seizures. No dizziness. PSYCHIATRIC: Not anxious. No depression. No suicidal thoughts. No homicidal thoughts. SKIN: No rash. No lesions. No wounds. ENDOCRINE: No unexplained weight loss. No weight gain. HEMATOLOGIC/LYMPHATIC: No anemia. No purpura. No petechiae. No prolonged or excessive bleeding. No palpable lymph nodes. PHYSICAL EXAMINATION: GENERAL: The patient is in no distress. HEENT: Head normocephalic, atraumatic. Eyes: Extraocular muscles are intact. Pupils are equal, round and reactive to light and accommodation. Ears: No lesions. Nose appeared normal. Throat: No exudate or erythema. NECK: Supple. No JVD, no carotid bruit. No lymphadenopathy or thyromegaly. LUNGS: Clear to auscultation. Percussion note normal. Chest symmetrical. HEART: S1, S2, no S3. No murmurs. No cyanosis or clubbing. No ascites. Pulses: Dorsalis pedis and posterior tibial pulses +1 to +2 bilaterally. ABDOMEN: Soft. Nontender. Bowel sounds active. No CVA tenderness. No mass felt. EXTREMITIES: No edema. Full range of motion of all extremities, equal. NEUROLOGIC: No focal deficit. Cranial nerves II through XII are grossly intact. No headache. No double vision. SKIN: Not dry. Intact. Turgor - normal. LYMPHATIC: No palpable lymph nodes/no lymphedema. MUSCULOSKELETAL: Normal joints with no swelling. Muscle tone is normal. TIME SPENT: More than 35 minutes. Plan and coordination of the patient's care discussed in the presence of nurse. JADE
[2022-04-23] MEDS: TESSALON PERLES PO PRN ×2 (16:51→22:51)
[2022-04-23] MEDS: NORCO 5-325 PO PRN (17:58)
[2022-04-23] MEDS: XANAX PO PRN (20:10)
[2022-04-23] MEDS: OMNICEF PO SCH (20:52)
[2022-04-23] MEDS: DOXYCYCLINE HYCLATE PO SCH (20:52)
[2022-04-23] MEDS ORDERED: MUCINEX DM ER 600-30 MG TABLET PO SCH (21:00)
[2022-04-23] MEDS: SODIUM CHLORIDE 1,000 ML IV SCH (21:07)
[2022-04-24] MEDS: SOLU-MEDROL 125 MG IVP SCH ×3 (04:25→21:04)
[2022-04-24] MEDS: PHENERGAN WITH CODEINE 6.25/10 MG/5 ML PO PRN (04:25)
[2022-04-24] MEDS: TORADOL IVP PRN ×2 (04:25→16:04)
[2022-04-24] MEDS: PULMICORT 0.5 MG/2 ML NEB SCH ×2 (04:55→19:45)
[2022-04-24] MEDS: DUONEB NEB SCH ×4 (04:55→19:45)
[2022-04-24 05:16] LABS: BASOPHILS % (AUTO) 0.3 % (0.0-3.0); EOSINOPHILS % (AUTO) 0.1 % (0.0-7.0); HEMOGLOBIN 11.2 g/dl (12.0-16.0); IMMATURE GRANULOCYTE # (AUTO) 0.5 (0.0-1.0); IMMATURE GRANULOCYTE % (AUTO) 4.4 % (0.0-5.0); LYMPHOCYTES # (AUTO) 1.3 K/uL (0.60-3.4); LYMPHOCYTES % (AUTO) 11.4 (10.0-50.0); MEAN CORPUSCULAR HEMOGLOBIN 29.4 pg (27.0-31.0); MEAN CORPUSCULAR HGB CONC 32.9 (31.8-35.4); MEAN CORPUSCULAR VOLUME 89.2 fl (81.0-99.0); MONOCYTES # (AUTO) 0.5 K/uL (0.4-2.0); MONOCYTES % (AUTO) 4.5 (0-10); NEUTROPHILS # (AUTO) 8.8 K/ul (2.0-6.9); NEUTROPHILS % (AUTO) 79.3 % (42.2-75.2); PLATELET COUNT 206 10^3/uL (140-440); RED BLOOD COUNT 3.81 10^6/ul (4.20-5.40); WHITE BLOOD COUNT 11.06 K/ul (4.6-10.2)
[2022-04-24 05:31] LABS: ALANINE AMINOTRANSFERASE 75.3 U/L (0-35); ALBUMIN 3.52 g/dL (3.5-5.0); ASPARTATE AMINO TRANSFERASE 56.4 U/L (14-36); BILIRUBIN,TOTAL 0.38 mg/dL (0.2-1.3); BLOOD UREA NITROGEN 35.7 mg/dL (7-17); CALCIUM 8.65 mg/dL (8.4-10.2); CARBON DIOXIDE 26.5 mmol/L (22-30.0); CHLORIDE 106.6 mmol/L (98-107); CREATININE 0.78 mg/dL (0.60-1.30); GLUCOSE 297.7 mg/dL (74-106); POTASSIUM 4.08 mmol/L (3.5-5.1); SODIUM 138.4 mmol/L (134.5-145); TOTAL PROTEIN 6.12 g/dL (6.3-8.2)
[2022-04-24] MEDS: PROTONIX PO SCH (05:43)
[2022-04-24] MEDS: NORCO 5-325 PO PRN (07:38)
[2022-04-24] MEDS ORDERED: ULTRAM PO PRN (07:53)
[2022-04-24] MEDS: MUCINEX DM ER 600-30 MG TABLET PO SCH ×2 (08:04→20:52)
[2022-04-24] MEDS: CARDIZEM PO SCH ×2 (08:04→20:52)
[2022-04-24] MEDS: SINGULAIR PO SCH (08:04)
[2022-04-24] MEDS: ZETIA PO SCH (08:04)
[2022-04-24] MEDS: VITAMIN D PO SCH (08:05)
[2022-04-24] MEDS: ASPIRIN EC PO SCH (08:05)
[2022-04-24] MEDS: TESSALON PERLES PO PRN (08:06)
[2022-04-24] MEDS: OMNICEF PO SCH (08:06)
[2022-04-24] MEDS: DOXYCYCLINE HYCLATE PO SCH (08:07)
[2022-04-24] MEDS: LOVENOX SUBCUT SCH (08:08)
[2022-04-24 08:33] LABS: ABG O2 HGB 95.7 % (95-100); ABG PH 7.47 (7.35-7.45); BEecf 4.7 (-2.0-3.0); COHb 1.4 (0.5-1.5); HCO3 28.4 (21-28); MetHb 0.7 (0-1.5); TCO2 29.6 (19-24); sO2 96.5 % (94-98); tHb 11.3 g/dl (11.7-17.4)
--- NOTE | 2022-04-24 08:47 | PCM.PROG ---
Attending Provider: ATTENDING PROVIDER: Dr. SEBASTIEN SMITH MD This patient is seen with Amanda Clay, Nurse Practitioner. DATE OF SERVICE: 04/24/22 SUBJECTIVE: This 66 year old /WHITE F was hospitalized 04/19/22. The patient is resting in bed. Oxygen saturation is down to 88% on room air this morning. Will repeat ABGs on 2L. Clinically, she has worsened. CT of chest showed persistent left bronchopneumonia. Will increase Solumedrol 125 q.8, having exteme pain with coughing or deep breathing scale of 10/10. REVIEW OF SYSTEMS: CONSTITUTIONAL: Weakness. No night sweats. No fatigue, malaise, lethargy. No fever or chills. HEENT: Eyes: No visual changes. No eye pain. No eye discharge. ENT: No runny nose. No epistaxis. No sinus pain. No odynophagia. No congestion. RESPIRATORY: Cough and shortness of breath. No hemoptysis. CARDIOVASCULAR: No angina symptoms. No CHF symptoms. No atypical chest pain for CAD. No palpitations. No orthopnea.. GASTROINTESTINAL: No abdominal pain. No nausea or vomiting. No diarrhea or constipation. No hematemesis. No hematochezia. GENITOURINARY: No urgency. No frequency. No dysuria. No hematuria. No obstructive symptoms. No discharge. No pain. No significant abnormal bleeding. MUSCULOSKELETAL: No musculoskeletal pain; no joint swelling. NEUROLOGICAL: Awake, alert, oriented to time, place and person. No headache. No neck pain. No syncope. No seizures. No dizziness. PSYCHIATRIC: Not anxious. No depression. No suicidal thoughts. No homicidal thoughts. SKIN: No rash. No lesions. No wounds. ENDOCRINE: No unexplained weight loss. No weight gain. HEMATOLOGIC/LYMPHATIC: No anemia. No purpura. No petechiae. No prolonged or e xcessive bleeding. No palpable lymph nodes. PHYSICAL EXAMINATION: GENERAL: The patient is awake, alert and oriented, lying/sitting in bed in no distress. VITAL SIGNS: Temperature 97.8 F, Pulse 92, Respiratory Rate 20, BP 156/77, Pulse Ox 95% HEENT: Head normocephalic, atraumatic. Eyes: Extraocular muscles are intact. Pupils are equal, round and reactive to light and accommodation. Ears: No lesions. Nose appeared normal. Throat: No exudate or erythema. NECK: Supple. No JVD, no carotid bruit. No lymphadenopathy or thyromegaly. LUNGS: Severely diminished breath sounds with bilateral inspiratory and expiratory wheezing. Clear to auscultation. Percussion note normal. Chest symmetrical. HEART: S1, S2, no S3. No murmurs. No cyanosis or clubbing. No ascites. Pulses: Dorsalis pedis and posterior tibial pulses +1 to +2 both sides. ABDOMEN: Soft. Non-tender. Bowel sounds active. No CVA tenderness. No mass felt. EXTREMITIES: No edema. Full range of motion of all extremities, equal. NEUROLOGIC: No focal deficit. Cranial nerves II through XII are grossly intact. No headache. No double vision. SKIN: Not dry. Intact. Turgor-normal. LYMPHATIC: No palpable lymph nodes/no lymphedema. MUSCULOSKELETAL: Normal joints with no swelling. Muscle tone is normal. LAB REVIEW: 04/24/22 05:10 04/24/22 05:10 04/24/22 05:10: Sodium 138.4, Potassium 4.08, Chloride 106.6, Carbon Dioxide 26.5, Anion Gap 9.38, BUN 35.7 H, Creatinine 0.78, Estimated GFR (MDRD) 74.00, BUN/Creatinine Ratio 45.76, Glucose 297.7 H, Calcium 8.65, Total Bilirubin 0.38, AST 56.4 H, ALT 75.3 H, Alkaline Phosphatase 87.0, Total Protein 6.12 L, Albumin 3.52, Globulin 2.60, Albumin/Globulin Ratio 1.35 04/24/22 05:10: WBC 11.06 H, RBC 3.81 L, Hgb 11.2 L, Hct 34.0 L, MCV 89.2, MCH 29.4, MCHC 32.9, RDW Coeff of Sade 13.0, Plt Count 206, Immature Gran % (Auto) 4.4, Neut % (Auto) 79.3 H, Lymph % (Auto) 11.4, [place] % (Auto) 4.5, Eos % (Auto) 0.1, Baso % (Auto) 0.3, Neut # (Auto) 8.8 H, Lymph # (Auto) 1.3, [place] # (Auto) 0.5, Eos # (Auto) 0.0, Baso # (Auto) 0.0, Immature Gran # (Auto) 0.5 ASSESSMENT: Please see below. 1. Acute respiratory failure 2. Persistent left pneumonia 3. Hypertension 4. Bilateral pleurisy 5. Diabetes mellitus type 2 PLAN: 1. Mucomyst twice a day 2. Increase Solu-Medrol 125 q.8hr 3. ABGs on 2L Plan and coordination of the patient's care discussed in the presence of Certified Genetic Counselor and nurse. CONDITION: STABLE TIME SPENT: 35 minutes SCRIBED BY: Sharon LOFTON scribed while in presence of service performed by Amanda Clay APRN on 04/24/22 (1700)
[2022-04-24] MEDS ORDERED: VANCOMYCIN 1.25 GM/250 ML BAG 1.25 GM/250 ML BAG IV ONE (09:00)
[2022-04-24] MEDS ORDERED: MAXIPIME 2 GM/50 ML D5W 2 GM/50 ML BAG IV SCH (09:00)
[2022-04-24 09:29] LABS: ABG O2 HGB 93.4 % (95-100); BEecf 0 (-2.0-3.0); COHb 1.4 (0.5-1.5); HCO3 24.8 (21-28); MetHb 0.6 (0-1.5); sO2 93.5 % (94-98); tHb 11.8 g/dl (11.7-17.4)
[2022-04-24] MEDS ORDERED: MUCOMYST 20% NEB NEB ONE (09:58)
--- NOTE | 2022-04-24 10:02 | PN ---
DATE OF SERVICE: 04/23/22 SUBJECTIVE: 66-year-old white female hospitalized with pneumonitis. The patient's condition seems to have improved some. She is still coughing a lot but says she was able to sleep at least 2 to 3 hours at night, was decreased to some extent. REVIEW OF SYSTEMS: CONSTITUTIONAL: Weakness and fatigue. No night sweats. No malaise, lethargy. No fever or chills. HEENT: Eyes: No visual changes. No eye pain. No eye discharge. ENT: No runny nose. No epistaxis. No sinus pain. No sore throat. No odynophagia. No congestion. RESPIRATORY: Cough. No hemoptysis. Shortness of breath on minimal exertion. CARDIOVASCULAR: Shortness of breath on exertion. No angina symptoms. No CHF symptoms. No atypical chest pain for CAD. No palpitations. No PND. No orthopnea. GASTROINTESTINAL: Appetite is acceptable. No abdominal pain. No nausea or vomiting. No diarrhea or constipation. No hematemesis. No hematochezia. GENITOURINARY: No urgency. No frequency. No dysuria. No hematuria. No obstructive symptoms. No discharge. No pain. No significant abnormal bleeding. MUSCULOSKELETAL: Generalized aches and pains a lot better. No musculoskeletal pain; no joint swelling. NEUROLOGICAL: No headache. No neck pain. No syncope. No seizures. No dizziness. PSYCHIATRIC: Not anxious. No depression. No suicidal thoughts. No homicidal thoughts. SKIN: No rash. No lesions. No wounds. ENDOCRINE: No unexplained weight loss. No weight gain. HEMATOLOGIC/LYMPHATIC: No anemia. No purpura. No petechiae. No prolonged or excessive bleeding. No palpable lymph nodes. PHYSICAL EXAMINATION: VITAL SIGNS: Temperature 98.3, pulse 86, respiratory rate 18, BP 143/83, pulse ox 95%. HEENT: Head normocephalic, atraumatic. Eyes: Extraocular muscles are intact. Pupils are equal, round and reactive to light and accommodation. Ears: No lesions. Nose appeared normal. Throat: No exudate or erythema. NECK: Supple. No JVD, no carotid bruit. No lymphadenopathy or thyromegaly. LUNGS: Decreased breath sounds but clear to auscultation with mild expiratory wheeze. Percussion note normal. Chest symmetrical. HEART: S1, S2, no S3. No murmurs. No cyanosis or clubbing. No ascites. Pulses: Dorsalis pedis and posterior tibial pulses +1 to +2 bilaterally. ABDOMEN: Soft. Nontender. Bowel sounds active. No CVA tenderness. No mass felt. EXTREMITIES: No edema. Full range of motion of all extremities, equal. NEUROLOGIC: No focal deficit. Cranial nerves II through XII are grossly intact. No headache. No double vision. SKIN: Not dry. Intact. Turgor - normal. LYMPHATIC: No palpable lymph nodes/no lymphedema. MUSCULOSKELETAL: Normal joints with no swelling. Muscle tone is normal. LABS: Hemoglobin 11, hematocrit 33, WBC 10,000, normal differential. Creatinine 0.7, BUN 20, potassium 3.7, glucose 233. ASSESSMENT: 1. ACUTE PNEUMONITIS SEEMS TO BE RESOLVING VERY SLOWLY, SEEMS TO BE VIRAL PLAN: 1. Echocardiogram to evaluate LV function which was done. LV function is normal. Ejection fraction is normal. Valvular structures normal. 2. Continue antibiotics in p.o. form, Doxy and now Omnicef instead of Rocephin. 3. Toradol 15 mg q.8 for pleuritic pain and Xanax 0.25 p.o. q.i.d. p.r.n. for anxiety. TIME SPENT: More than 35 minutes. Plan and coordination of the patient's care discussed in the presence of nurse. JADE
[2022-04-24] MEDS: MAXIPIME 2 GM/50 ML D5W 2 GM/50 ML BAG IV SCH ×2 (13:16→20:49)
[2022-04-24] MEDS: TUSSIONEX PO SCH ×2 (13:18→20:52)
[2022-04-24] MEDS ORDERED: DILAUDID 1 MG/ML SYRINGE IVP ONE (16:14)
[2022-04-24] MEDS ORDERED: ZITHROMAX PO ONE (16:17)
[2022-04-24] MEDS: MUCOMYST 20% NEB NEB SCH (19:58)
[2022-04-24] MEDS: HUMULIN R SUBCUT PRN (21:01)
[2022-04-24] MEDS: VANCOMYCIN 1 GRAM/200 ML PREMIX 1 GM/200 ML BAG IV SCH (21:34)
[2022-04-24] MEDS: DILAUDID 1 MG/ML SYRINGE IVP PRN (22:14)
[2022-04-25] MEDS ORDERED: NORCO 5-325 PO PRN (00:01)
[2022-04-25] MEDS: TESSALON PERLES PO PRN ×2 (01:58→13:49)
[2022-04-25] MEDS: TORADOL IVP PRN ×4 (01:59→22:17)
[2022-04-25] MEDS: MUCOMYST 20% NEB NEB SCH ×2 (04:50→19:07)
[2022-04-25] MEDS: PULMICORT 0.5 MG/2 ML NEB SCH ×2 (04:50→19:07)
[2022-04-25] MEDS: DUONEB NEB SCH ×4 (04:50→19:07)
[2022-04-25 05:25] LABS: HEMOGLOBIN 10.8 g/dl (12.0-16.0); MEAN CORPUSCULAR HEMOGLOBIN 29.8 pg (27.0-31.0); MEAN CORPUSCULAR HGB CONC 33.8 (31.8-35.4); MEAN CORPUSCULAR VOLUME 88.4 fl (81.0-99.0); PLATELET COUNT 209 10^3/uL (140-440); RDW COEFFICIENT OF VARIATION 12.9 % (11.6-14.8); RED BLOOD COUNT 3.62 10^6/ul (4.20-5.40); WHITE BLOOD COUNT 11.33 K/ul (4.6-10.2)
[2022-04-25] MEDS: SOLU-MEDROL 125 MG IVP SCH ×3 (05:28→20:28)
[2022-04-25 05:42] LABS: ALANINE AMINOTRANSFERASE 99.4 U/L (0-35); ALBUMIN 3.4 g/dL (3.5-5.0); ALKALINE PHOSPHATASE 73.8 U/L (53-141); ASPARTATE AMINO TRANSFERASE 68.9 U/L (14-36); BILIRUBIN,TOTAL 0.46 mg/dL (0.2-1.3); BLOOD UREA NITROGEN 37.8 mg/dL (7-17); CALCIUM 8.25 mg/dL (8.4-10.2); CARBON DIOXIDE 27.5 mmol/L (22-30.0); CHLORIDE 105.8 mmol/L (98-107); CREATININE 0.75 mg/dL (0.60-1.30); GLUCOSE 199.9 mg/dL (74-106); POTASSIUM 4.2 mmol/L (3.5-5.1); SODIUM 136.2 mmol/L (134.5-145); TOTAL PROTEIN 5.88 g/dL (6.3-8.2)
[2022-04-25] MEDS: PROTONIX PO SCH (05:56)
[2022-04-25] MEDS: MAXIPIME 2 GM/50 ML D5W 2 GM/50 ML BAG IV SCH ×4 (05:57→20:27)
[2022-04-25 06:13] LABS: ANISOCYTOSIS NOT PRESENT (NOT PRESENT)
[2022-04-25] MEDS: SODIUM CHLORIDE 1,000 ML IV SCH ×2 (06:39→22:19)
[2022-04-25] MEDS: TUSSIONEX PO SCH ×2 (08:30→20:28)
[2022-04-25 08:39] LABS: ABG O2 HGB 86.9 % (95-100); ABG PH 7.41 (7.35-7.45); COHb 1.6 (0.5-1.5); HCO3 26.6 (21-28); MetHb 0.8 (0-1.5); TCO2 27.9 (19-24); sO2 87.4 % (94-98); tHb 11.8 g/dl (11.7-17.4)
[2022-04-25] MEDS: DILAUDID 1 MG/ML SYRINGE IVP PRN ×3 (09:25→22:17)
[2022-04-25] MEDS: VANCOMYCIN 1 GRAM/200 ML PREMIX 1 GM/200 ML BAG IV SCH ×2 (09:28→22:16)
[2022-04-25] MEDS: ZETIA PO SCH (09:29)
[2022-04-25] MEDS: LOVENOX SUBCUT SCH (09:29)
[2022-04-25] MEDS: ZITHROMAX PO SCH (09:29)
[2022-04-25] MEDS: VITAMIN D PO SCH (09:29)
[2022-04-25] MEDS: CARDIZEM PO SCH ×2 (09:30→20:28)
[2022-04-25] MEDS: SINGULAIR PO SCH (09:30)
[2022-04-25] MEDS: MUCINEX DM ER 600-30 MG TABLET PO SCH ×2 (09:30→20:28)
--- NOTE | 2022-04-25 11:06 | ECHO2D ---
Date of Exam: 04/23/2022 Ordering Physician: DR. SEBASTIEN SMITH Room #: [id number] Reason for Echo: CHEST PAIN, SOA M-Mode Normal Adult Results LV Dimensions Normal Adult Results AoV Opening excursions >1.6 >1.6 LVEDD-base- 3.5-5.8 3.6 Ao root dimensions 2.0-3.7 2.7 LVESD-base- 3.1-4.6 L. Atrium dimensions 1.9-3.8 3.8 Post. Wall thickness 0.8-1.1 0.9 IV septum (thickness) 0.7-1.2 1.0 Post. Wall excursion 0.72-1.3 NORMAL Septal motion NORMAL Systolic motion R. Ventricular cavity 1.5-2.0 NORMAL LVEF 60% 66% Paradoxical septal wall motion NORMAL 2-D : 2-D M Mode Echocardiogram was performed using apical four chamber and left parasternal long and short axis views. Mitral, tricuspid and aortic valves appear to be normal. Contractility of the left ventricle seems to be normal, so is the cavity size. Left atrial cavity size and aortic root appear to be normal. There is no pericardial effusion. There is no thrombus noted in the left ventricle or left atrial cavity. M-MODE: MV: NORMAL AV: NORMAL TV: NORMAL PV: CHAMBER SIZE: NORMAL WALL MOTION: NORMAL PERICARDIUM: NORMAL INTERPRETATION: 1. NORMAL 2 "D" "M" MODE ECHO MTDD
--- NOTE | 2022-04-25 12:30 | CT ---
EXAM: CHEST CT WITH INTRAVENOUS CONTRAST HISTORY: Shortness of breath. TECHNIQUE: CT acquisition of the chest from the thoracic inlet to the upper abdomen following IV cont rast administration. 2-D coronal and sagittal reformatted images were obtained from the axial source images. CT Dose Reduction Techniques Performed: Yes. COMPARISON: 04/22/2022 FINDINGS: Lung Parenchyma and Airways: There has been development of small bilateral effusions, right greater t araujo left. There is bilateral lower lobe subsegmental atelectasis. Left lung peribronchial nodularit y seen previously has changed to lower lobe predominant centrilobular ground-glass nodular densities . No confluent infiltrate. No solid mass. Tracheobronchial tree is patent. Thoracic Inlet, Mediastinum, and Geraldine: No mass. No lymphadenopathy. Heart, Vessels, and Pericardium: The main pulmonary artery is normal caliber. There is no central pu lmonary embolism. The thoracic aorta is not dilated. The heart chambers are not enlarged. There is no pericardial effusion or thickening. Coronary calcifications. Bones and Soft Tissues: Visualized bones are within normal limits. Chest wall soft tissues are unrem arkable. Upper Abdomen: There has been cholecystectomy. Mild hepatic steatosis. Small hiatal hernia again n oted. IMPRESSION: 1. There has been change in the appearance of the chest with development of small bilateral pleural effusions, subsegmental atelectasis in the lower lobes, and lower lobe predominant centrilobular grou nd-glass nodular densities which can be seen in bronchiolitis and atypical pneumonia. All CT scans are performed using dose optimization techniques as appropriate to the performed exam an d include at least one of the following: Automated exposure control, adjustment of the mA and/or kV according t o size, and the use of iterative reconstruction technique.
--- NOTE | 2022-04-25 12:43 | DS ---
DATE OF SERVICE: 04/24/22 SUBJECTIVE: 66-year-old white female hospitalized with pneumonitis which seems to be viral. The patient is afebrile. Her only problem is cough and congestion. CT scan done day before yesterday practically unchanged with left bronchiolitis. REVIEW OF SYSTEMS: CONSTITUTIONAL: No night sweats. No fatigue, malaise, lethargy. No fever or chills. HEENT: Eyes: No visual changes. No eye pain. No eye discharge. ENT: No runny nose. No epistaxis. No sinus pain. No sore throat. No odynophagia. No congestion. RESPIRATORY: No cough, no congestion. No hemoptysis. Shortness of breath. CARDIOVASCULAR: No angina symptoms. No CHF symptoms. No atypical chest pain for CAD. No palpitations. No PND. No orthopnea. GASTROINTESTINAL: No abdominal pain. No nausea or vomiting. No diarrhea or constipation. No hematemesis. No hematochezia. GENITOURINARY: No urgency. No frequency. No dysuria. No hematuria. No obstructive symptoms. No discharge. No pain. No significant abnormal bleeding. MUSCULOSKELETAL: No musculoskeletal pain; no joint swelling. NEUROLOGICAL: No headache. No neck pain. No syncope. No seizures. No dizziness. PSYCHIATRIC: Not anxious. No depression. No suicidal thoughts. No homicidal thoughts. SKIN: No rash. No lesions. No wounds. ENDOCRINE: No unexplained weight loss. No weight gain. HEMATOLOGIC/LYMPHATIC: No anemia. No purpura. No petechiae. No prolonged or excessive bleeding. No palpable lymph nodes. PHYSICAL EXAMINATION: HEENT: Head normocephalic, atraumatic. Eyes: Extraocular muscles are intact. Pupils are equal, round and reactive to light and accommodation. Ears: No lesions. Nose appeared normal. Throat: No exudate or erythema. NECK: Supple. No JVD, no carotid bruit. No lymphadenopathy or thyromegaly. LUNGS: Decreased breath sounds with mild expiratory wheeze. Percussion note normal. Chest symmetrical. HEART: S1, S2, no S3. No murmurs. No cyanosis or clubbing. No ascites. Pulses: Dorsalis pedis and posterior tibial pulses +1 to +2 bilaterally. ABDOMEN: Soft. Nontender. Bowel sounds active. No CVA tenderness. No mass felt. EXTREMITIES: No edema. Full range of motion of all extremities, equal. NEUROLOGIC: No focal deficit. Cranial nerves II through XII are grossly intact. No headache. No double vision. SKIN: Not dry. Intact. Turgor - normal. LYMPHATIC: No palpable lymph nodes/no lymphedema. MUSCULOSKELETAL: Normal joints with no swelling. Muscle tone is normal. The patient doesn't seem to be in distress but she is breathing shallow because of pleuritic type of pain. She was seen in the morning at 8 a.m. and also again at 1 p.m. and again seen at 5 p.m. The patient's main problem seems to be pleuritic pain and has been given Tussinex with Toradol 10 mg IV for pleuritic pain with not much response. The patient was given 1 mg of Dilaudid, said that helped in the previous hospitalization with her abdominal pain and responded really well with it, practically no pain and she was quiet for at least 1.5 to 2 hours after 1 mg of Dilaudid. No reaction to that. During the daytime she had persistent cough, moderate to severe pleuritic pain, was restless. The patient has been explained about possible transfer to a center where pulmonary physician is available like in [place]. The patient declined any transfer anywhere. Around 3:30 the patient's insurance approved the patient's stay for today and for tomorrow. The patient says she is not going anywhere and will stay at [facility] no matter what. She has been on antibiotics. Vancomycin has been on antibiotics. Vancomycin has been added. I am going to give Azithromycin 500 mg p.o. now and the rest of her medications that is being given to her. Will also draw legionella and mycoplasma titers. The patient's cough is mainly dry. Yesterday, echocardiogram was done which showed normal LV contractility. Arterial blood gases done today showed p02 of close to 70 on room air, saturation of 93%. Normal pH. The patient is on sliding scale. Hyperglycemia first created by steroids. TIME SPENT: TWO HOURS TODAY WITH THE PATIENT. Plan and coordination of the patient's care discussed in the presence of nurse. JADE
[2022-04-25] MEDS ORDERED: LASIX IVP STA (13:04)
--- NOTE | 2022-04-25 13:40 | DS ---
DATE OF SERVICE: 04/25/22 FINAL DIAGNOSIS: 1. COMMUNITY ACQUIRED LEFT UPPER LOBE PNEUMONIA WITH RESPIRATORY FAILURE 2. PLEURITIC PAIN 3. HISTORY OF HYPERTENSION 4. HISTORY OF DYSLIPIDEMIA 5. HISTORY OF MIGRAINE HEADACHE 6. HYPERGLYCEMIA SECONDARY TO STEROID 7. DIABETES MELLITUS TYPE 2 8. HISTORY OF FIBROMYALGIA 9. FATTY LIVER WITH ABNORMAL LIVER ENZYMES AT TIMES DISCHARGE INSTRUCTIONS: MEDICATIONS AT TIME OF TRANSFER: Duonebs q.i.d. p.r.n. Mucomyst 200 mg nebs twice a day 6.25 mg p.o. q.i.d. for panic Budesonide 0.5 twice a day nebs Tussinex one to teaspoonful b.i.d. Dilaudid 1 mg IM q.6hr for pain, pleuritic type Toradol 15 mg q.6 IV for pleuritic pain Cefepime 2 gm q.8 Vancomycin 1 gm q.12 Zithromax 500 mg given yesterday and today and one dose 500 mg due tomorrow Methylprednisone 125 q.8 Protonix 40 mg p.o. q.a.m. Tramadol 50 mg b.i.d. p.r.n. for pain HOSPITAL COURSE: 66-year-old white female hospitalized on 04/19/22 with fever of 101 and cough with congestion. The patient had left upper lobe pneumonia. The patient's blood gases on room air at the time p02 of 80 with pc02 of 38, pH 7.46, 96% saturation on room air on admission. The patient's condition was more or less stable with continued wheezing and cough. The patient became afebrile after admission to the hospital and has remained afebrile for the past 4 to 5 days. The patient's main problem is cough, dry with pleuritic type of pain. Blood gases have deteriorated, p02 of 53, pc02 of 42 with pH of 7.41 with 87% on room air. With 2L of oxygen her saturation is 94%. She doesn't seem to be in distress but on physical exam has expiratory wheeze more on the left side than the right. Pleuritic pain is under control with Dilaudid. The patient is on Cefepime and Vanc and Azithromycin. The patient was on Doxycycline for 5 days. WBC count has mostly gone up to 11,000 likely from steroid therapy otherwise it is well within normal range. Considering the patient's respiratory status worsening, she was advised to have a consult and transfer. The patient has agreed to be evaluated by a pulmonary physician at one of the [facility]. The patient has been getting treatment with Duonebs, Mucomyst and Pulmicort. TIME SPENT: 70 minutes MTDD
[2022-04-25] MEDS ORDERED: TORADOL IVP STA (15:44)
[2022-04-25] MEDS: HUMULIN R SUBCUT PRN (22:16)
[2022-04-26] MEDS: MAXIPIME 2 GM/50 ML D5W 2 GM/50 ML BAG IV SCH ×3 (04:14→20:04)
[2022-04-26] MEDS: SOLU-MEDROL 125 MG IVP SCH ×3 (04:14→20:04)
[2022-04-26] MEDS: DILAUDID 1 MG/ML SYRINGE IVP PRN ×3 (04:14→23:15)
[2022-04-26] MEDS: TORADOL IVP PRN ×4 (04:14→23:15)
[2022-04-26] MEDS: MUCOMYST 20% NEB NEB SCH ×2 (04:50→19:20)
[2022-04-26] MEDS: DUONEB NEB SCH ×4 (04:50→19:20)
[2022-04-26] MEDS: PULMICORT 0.5 MG/2 ML NEB SCH ×2 (04:50→19:20)
[2022-04-26 05:15] LABS: HEMATOCRIT 31.5 % (37.0-47.0); HEMOGLOBIN 10.6 g/dl (12.0-16.0); MEAN CORPUSCULAR HEMOGLOBIN 29.4 pg (27.0-31.0); MEAN CORPUSCULAR HGB CONC 33.7 (31.8-35.4); MEAN CORPUSCULAR VOLUME 87.3 fl (81.0-99.0); PLATELET COUNT 212 10^3/uL (140-440); RDW COEFFICIENT OF VARIATION 12.8 % (11.6-14.8); RED BLOOD COUNT 3.61 10^6/ul (4.20-5.40); WHITE BLOOD COUNT 10.98 K/ul (4.6-10.2)
[2022-04-26 05:24] LABS: ALANINE AMINOTRANSFERASE 99.6 U/L (0-35); ALBUMIN 3.25 g/dL (3.5-5.0); BILIRUBIN,TOTAL 0.51 mg/dL (0.2-1.3); BLOOD UREA NITROGEN 34.3 mg/dL (7-17); CALCIUM 7.95 mg/dL (8.4-10.2); CARBON DIOXIDE 29.3 mmol/L (22-30.0); CHLORIDE 103.5 mmol/L (98-107); CREATININE 0.78 mg/dL (0.60-1.30); SODIUM 135.1 mmol/L (134.5-145); TOTAL PROTEIN 5.71 g/dL (6.3-8.2)
[2022-04-26 05:26] LABS: POTASSIUM 3.87 mmol/L (3.5-5.1)
[2022-04-26 05:39] LABS: ANISOCYTOSIS NOT PRESENT (NOT PRESENT)
[2022-04-26] MEDS: PROTONIX PO SCH (05:52)
[2022-04-26] MEDS: TUSSIONEX PO SCH ×2 (09:11→20:05)
[2022-04-26] MEDS: MUCINEX DM ER 600-30 MG TABLET PO SCH ×2 (09:12→20:04)
[2022-04-26] MEDS: VITAMIN D PO SCH (09:12)
[2022-04-26] MEDS: ZETIA PO SCH (09:12)
[2022-04-26] MEDS: ZITHROMAX PO SCH (09:12)
[2022-04-26] MEDS: CARDIZEM PO SCH ×2 (09:12→20:05)
[2022-04-26] MEDS: SINGULAIR PO SCH (09:12)
[2022-04-26] MEDS: VANCOMYCIN 1.25 GM/250 ML BAG 1.25 GM/250 ML BAG IV SCH ×2 (09:13→20:53)
[2022-04-26] MEDS: LOVENOX SUBCUT SCH (09:13)
[2022-04-26] MEDS: VANCOMYCIN 1 GRAM/200 ML PREMIX 1 GM/200 ML BAG IV SCH (09:20)
[2022-04-26] MEDS: HUMULIN R SUBCUT PRN ×2 (09:36→20:05)
[2022-04-26] MEDS: SODIUM CHLORIDE 1,000 ML IV SCH ×3 (11:11→16:49)
[2022-04-26] MEDS: XANAX PO PRN (12:25)
[2022-04-26] MEDS ORDERED: LASIX IVP STA (16:24)
[2022-04-26 16:42] LABS: ABG O2 HGB 91.7 % (95-100); ABG PH 7.43 (7.35-7.45); BEecf 1.6 (-2.0-3.0); COHb 1.7 (0.5-1.5); HCO3 25.9 (21-28); TCO2 27.1 (19-24); sO2 91.7 % (94-98); tHb 11.1 g/dl (11.7-17.4)
[2022-04-26] MEDS: TESSALON PERLES PO PRN (16:44)
[2022-04-26] MEDS: COREG PO SCH (20:54)
[2022-04-26] MEDS: VASOTEC IV IVP PRN (20:54)
[2022-04-27] MEDS: SOLU-MEDROL 125 MG IVP SCH (04:02)
[2022-04-27] MEDS: SODIUM CHLORIDE 1,000 ML IV SCH (04:32)
[2022-04-27] MEDS: MUCOMYST 20% NEB NEB SCH ×2 (05:00→19:34)
[2022-04-27] MEDS: DUONEB NEB SCH ×4 (05:00→19:34)
[2022-04-27] MEDS: PULMICORT 0.5 MG/2 ML NEB SCH ×2 (05:00→19:34)
[2022-04-27 05:03] LABS: HEMOGLOBIN 10.3 g/dl (12.0-16.0); MEAN CORPUSCULAR HEMOGLOBIN 29.2 pg (27.0-31.0); MEAN CORPUSCULAR HGB CONC 33.2 (31.8-35.4); MEAN CORPUSCULAR VOLUME 87.8 fl (81.0-99.0); PLATELET COUNT 199 10^3/uL (140-440); RDW COEFFICIENT OF VARIATION 12.9 % (11.6-14.8); RED BLOOD COUNT 3.53 10^6/ul (4.20-5.40); WHITE BLOOD COUNT 9.31 K/ul (4.6-10.2)
[2022-04-27 05:11] LABS: ALANINE AMINOTRANSFERASE 159.2 U/L (0-35); ALBUMIN 3.04 g/dL (3.5-5.0); ALKALINE PHOSPHATASE 74.6 U/L (53-141); ASPARTATE AMINO TRANSFERASE 79.7 U/L (14-36); BILIRUBIN,TOTAL 0.56 mg/dL (0.2-1.3); BLOOD UREA NITROGEN 37.4 mg/dL (7-17); CALCIUM 7.67 mg/dL (8.4-10.2); CARBON DIOXIDE 26.9 mmol/L (22-30.0); CHLORIDE 103.7 mmol/L (98-107); CREATININE 0.75 mg/dL (0.60-1.30); GLUCOSE 278.9 mg/dL (74-106); POTASSIUM 3.63 mmol/L (3.5-5.1); TOTAL PROTEIN 5.35 g/dL (6.3-8.2)
[2022-04-27] MEDS: PROTONIX PO SCH (05:41)
[2022-04-27 05:49] LABS: ANISOCYTOSIS NOT PRESENT (NOT PRESENT)
[2022-04-27] MEDS: ZOFRAN ODT PO PRN (06:03)
[2022-04-27] MEDS: TUSSIONEX PO SCH ×2 (08:23→20:11)
[2022-04-27] MEDS ORDERED: LASIX IVP STA (08:39)
[2022-04-27] MEDS ORDERED: SODIUM CHLORIDE 1,000 ML IV SCH (08:40)
[2022-04-27] MEDS: FLORASTOR PO SCH ×2 (08:50→20:11)
[2022-04-27] MEDS: COREG PO SCH ×2 (08:50→16:51)
[2022-04-27] MEDS: MUCINEX DM ER 600-30 MG TABLET PO SCH ×2 (08:50→20:10)
[2022-04-27] MEDS: CARDIZEM PO SCH ×2 (08:50→20:10)
[2022-04-27] MEDS: SINGULAIR PO SCH (08:50)
[2022-04-27] MEDS: VITAMIN D PO SCH (08:50)
[2022-04-27] MEDS: ZETIA PO SCH (08:50)
[2022-04-27] MEDS: LOVENOX SUBCUT SCH (08:51)
[2022-04-27] MEDS: HUMULIN R SUBCUT PRN ×2 (09:00→20:13)
[2022-04-27] MEDS: DILAUDID 1 MG/ML SYRINGE IVP PRN ×2 (09:10→22:05)
[2022-04-27] MEDS: OMNICEF PO SCH ×2 (11:52→20:10)
[2022-04-27] MEDS: DOXYCYCLINE HYCLATE PO SCH (11:52)
[2022-04-27] MEDS ORDERED: DECADRON IM ONE (14:00)
[2022-04-27] MEDS: TESSALON PERLES PO PRN (14:15)
[2022-04-27] MEDS: TORADOL IVP PRN (22:05)
[2022-04-28] MEDS: ZOFRAN ODT PO PRN ×2 (01:13→19:17)
[2022-04-28] MEDS: TESSALON PERLES PO PRN ×2 (04:33→11:17)
[2022-04-28] MEDS: DUONEB NEB SCH ×4 (04:50→20:09)
[2022-04-28] MEDS: PULMICORT 0.5 MG/2 ML NEB SCH ×2 (04:50→20:09)
[2022-04-28] MEDS: MUCOMYST 20% NEB NEB SCH ×2 (04:50→20:09)
[2022-04-28 05:14] LABS: HEMATOCRIT 30.9 % (37.0-47.0); HEMOGLOBIN 10.4 g/dl (12.0-16.0); MEAN CORPUSCULAR HEMOGLOBIN 29.7 pg (27.0-31.0); MEAN CORPUSCULAR HGB CONC 33.7 (31.8-35.4); MEAN CORPUSCULAR VOLUME 88.3 fl (81.0-99.0); PLATELET COUNT 189 10^3/uL (140-440); RDW COEFFICIENT OF VARIATION 13.2 % (11.6-14.8); WHITE BLOOD COUNT 10.88 K/ul (4.6-10.2)
[2022-04-28 05:26] LABS: ALANINE AMINOTRANSFERASE 164.5 U/L (0-35); ALBUMIN 3.05 g/dL (3.5-5.0); ASPARTATE AMINO TRANSFERASE 59.9 U/L (14-36); BILIRUBIN,TOTAL 0.69 mg/dL (0.2-1.3); BLOOD UREA NITROGEN 40.7 mg/dL (7-17); CALCIUM 8.01 mg/dL (8.4-10.2); CARBON DIOXIDE 32.2 mmol/L (22-30.0); CHLORIDE 102.6 mmol/L (98-107); CREATININE 0.73 mg/dL (0.60-1.30); GLUCOSE 208.6 mg/dL (74-106); POTASSIUM 3.66 mmol/L (3.5-5.1); SODIUM 135.4 mmol/L (134.5-145); TOTAL PROTEIN 5.41 g/dL (6.3-8.2)
[2022-04-28 05:31] LABS: ANISOCYTOSIS NOT PRESENT (NOT PRESENT)
[2022-04-28] MEDS: PROTONIX PO SCH (05:41)
[2022-04-28] MEDS: DILAUDID 1 MG/ML SYRINGE IVP PRN (06:07)
[2022-04-28] MEDS ORDERED: LASIX IVP ONE (08:13)
[2022-04-28] MEDS: TUSSIONEX PO SCH ×2 (08:26→20:09)
[2022-04-28] MEDS: OMNICEF PO SCH ×2 (08:26→20:09)
[2022-04-28] MEDS: DOXYCYCLINE HYCLATE PO SCH (08:26)
[2022-04-28] MEDS: MUCINEX DM ER 600-30 MG TABLET PO SCH ×2 (08:27→20:10)
[2022-04-28] MEDS: ZETIA PO SCH (08:27)
[2022-04-28] MEDS: VITAMIN D PO SCH (08:28)
[2022-04-28] MEDS: CARDIZEM PO SCH ×2 (08:28→20:10)
[2022-04-28] MEDS: SINGULAIR PO SCH (08:28)
[2022-04-28] MEDS: FLORASTOR PO SCH ×2 (08:29→20:10)
[2022-04-28] MEDS: COREG PO SCH ×2 (08:29→16:29)
[2022-04-28] MEDS: LOVENOX SUBCUT SCH (08:31)
[2022-04-28] MEDS: HUMULIN R SUBCUT PRN ×2 (08:39→20:09)
[2022-04-28] MEDS ORDERED: DECADRON IM ONE (09:00)
[2022-04-28 11:01] LABS: ABG PH 7.46 (7.35-7.45); COHb 1.7 (0.5-1.5); HCO3 34.8 (21-28); MetHb 0.8 (0-1.5)
[2022-04-28 11:02] LABS: ABG O2 HGB 86.7 % (95-100); TCO2 36.3 (19-24); sO2 87.2 % (94-98); tHb 11.5 g/dl (11.7-17.4)
[2022-04-28] MEDS: TORADOL IVP PRN (16:29)
[2022-04-28] MEDS: DECADRON IM SCH (20:10)
[2022-04-28] MEDS: VASOTEC IV IVP PRN (22:06)
[2022-04-29] MEDS: DUONEB NEB SCH ×3 (04:55→14:00)
[2022-04-29] MEDS: MUCOMYST 20% NEB NEB SCH (04:55)
[2022-04-29] MEDS: PULMICORT 0.5 MG/2 ML NEB SCH (04:55)
[2022-04-29 05:24] LABS: HEMATOCRIT 31.1 % (37.0-47.0); HEMOGLOBIN 10.4 g/dl (12.0-16.0); MEAN CORPUSCULAR HEMOGLOBIN 29.7 pg (27.0-31.0); MEAN CORPUSCULAR HGB CONC 33.4 (31.8-35.4); MEAN CORPUSCULAR VOLUME 88.9 fl (81.0-99.0); PLATELET COUNT 179 10^3/uL (140-440); RDW COEFFICIENT OF VARIATION 13.3 % (11.6-14.8); WHITE BLOOD COUNT 10.58 K/ul (4.6-10.2)
[2022-04-29] MEDS: PROTONIX PO SCH (05:31)
[2022-04-29 05:38] LABS: ALANINE AMINOTRANSFERASE 132.7 U/L (0-35); ALBUMIN 2.89 g/dL (3.5-5.0); ALKALINE PHOSPHATASE 81.8 U/L (53-141); ASPARTATE AMINO TRANSFERASE 44.8 U/L (14-36); BILIRUBIN,TOTAL 0.65 mg/dL (0.2-1.3); BLOOD UREA NITROGEN 35.9 mg/dL (7-17); CALCIUM 7.61 mg/dL (8.4-10.2); CARBON DIOXIDE 33.4 mmol/L (22-30.0); CHLORIDE 101.7 mmol/L (98-107); CREATININE 0.69 mg/dL (0.60-1.30); GLUCOSE 196.9 mg/dL (74-106); POTASSIUM 3.64 mmol/L (3.5-5.1); TOTAL PROTEIN 5.13 g/dL (6.3-8.2)
[2022-04-29 05:53] LABS: ANISOCYTOSIS NOT PRESENT (NOT PRESENT)
[2022-04-29] MEDS ORDERED: LASIX IVP ONE (08:14)
--- NOTE | 2022-04-29 08:48 | PCM.PROG ---
Attending Provider: ATTENDING PROVIDER: Dr. SEBASTIEN SMITH MD This patient is seen with Amanda Clay, Nurse Practitioner. DATE OF SERVICE: 04/29/22 SUBJECTIVE: This 66 year old /WHITE F was hospitalized 04/19/22. Still with shortness of breath. ABG yesterday showed O2 in 50s at rest on room air. Having desaturation with any sort of exertion. Still with pleuritic pain. Blood pressure has been elevated through the night, highest 177/81. REVIEW OF SYSTEMS: CONSTITUTIONAL: No night sweats. Fatigue. No fever or chills. HEENT: Eyes: No visual changes. No eye pain. No eye discharge. ENT: No runny nose. No epistaxis. No sinus pain. No odynophagia. No congestion. RESPIRATORY: Cough, no congestion. No hemoptysis. Shortness of breath. use of accessory muscles to breath. Wheezing. CARDIOVASCULAR: No angina symptoms. No CHF symptoms. No atypical chest pain for CAD. No palpitations. No orthopnea.. GASTROINTESTINAL: No abdominal pain. No nausea or vomiting. No diarrhea or constipation. No hematemesis. No hematochezia. GENITOURINARY: No urgency. No frequency. No dysuria. No hematuria. No obstructive symptoms. No discharge. No pain. No significant abnormal bleeding. MUSCULOSKELETAL: No musculoskeletal pain; no joint swelling. Weakness. NEUROLOGICAL: Awake, alert, oriented to time, place and person. No headache. No neck pain. No syncope. No seizures. No dizziness. PSYCHIATRIC: Not anxious. No depression. No suicidal thoughts. No homicidal thoughts. SKIN: No rash. No lesions. No wounds. ENDOCRINE: No unexplained weight loss. No weight gain. HEMATOLOGIC/LYMPHATIC: No anemia. No purpura. No petechiae. No prolonged or excessive bleeding. No palpable lymph nodes. PHYSICAL EXAMINATION: GENERAL: The patient is awake, alert and oriented, sitting in bed in no distress. VITAL SIGNS: Temperature 96.7 F, Pulse 73, Respiratory Rate 18, BP 153/84, Pulse Ox 93% HEENT: Head normocephalic, atraumatic. Eyes: Extraocular muscles are intact. Pupils are equal, round and reactive to light and accommodation. Ears: No lesions. Nose appeared normal. Throat: No exudate or erythema. NECK: Supple. No JVD, no carotid bruit. No lymphadenopathy or thyromegaly. LUNGS: Severely diminished breath sounds. Clear to auscultation. Percussion n ote normal. Chest symmetrical. HEART: S1, S2, no S3. No murmurs. No cyanosis or clubbing. No ascites. Pulses: Dorsalis pedis and posterior tibial pulses +1 to +2 both sides. ABDOMEN: Soft. Non-tender. Bowel sounds active. No CVA tenderness. No mass felt. EXTREMITIES: No edema. Full range of motion of all extremities, equal. NEUROLOGIC: No focal deficit. Cranial nerves II through XII are grossly intact. No headache. No double vision. SKIN: Not dry. Intact. Turgor-normal. LYMPHATIC: No palpable lymph nodes/no lymphedema. MUSCULOSKELETAL: Normal joints with no swelling. Muscle tone is normal. LAB REVIEW: 04/29/22 04:57 04/29/22 04:57 04/29/22 04:57: Sodium 135.0, Potassium 3.64, Chloride 101.7, Carbon Dioxide 33.4 H, Anion Gap 3.54, BUN 35.9 H, Creatinine 0.69, Estimated GFR (MDRD) 85.00, BUN/Creatinine Ratio 52.02, Glucose 196.9 H, Calcium 7.61 L, Total Bilirubin 0.65, AST 44.8 H, ALT 132.7 H D, Alkaline Phosphatase 81.8, Total Protein 5.13 L , Albumin 2.89 L, Globulin 2.24, Albumin/Globulin Ratio 1.29 04/29/22 04:57: WBC 10.58 H, RBC 3.50 L, Hgb 10.4 L, Hct 31.1 L, MCV 88.9, MCH 29.7, MCHC 33.4, RDW Coeff of Sade 13.3, Plt Count 179, Neutrophils % (Manual) 80.0 H, Band Neutrophils % 1.0, Lymphocytes % (Manual) 6.0 L, Monocytes % (Manual) 12.0 H, Myelocytes % 1.0, Nucleated RBCs 1.0, Anisocytosis Not present 04/28/22 10:50: Puncture Site Lrad, Base Excess 11.0 H, O2 Saturation 87.2 L, AB G pH 7.46 H, ABG pCO2 49.0 H, ABG pO2 50.0 L*, ABG HCO3 34.8 H, ABG Total CO2 36.3 H, Phu Test Pos, Hemoglobin 0.8, Oxyhemoglobin 86.7 L, Carboxyhemoglobin 1.7 H, Total Hemoglobin 11.5 L, FiO2 % 21.0 ASSESSMENT: Please see below. 1. Persistent bronchopneumonia 2. Acute respiratory failure 3. Hypertension 4. Diabetes mellitus type II 5. Generalized edema PLAN: 1. 40mg IV Lasix 2. Encourage the patient to get up and move. Plan and coordination of the patient's care discussed in the presence of Sharepoint Designer Developer and nurse. SCRIBED BY: Sharon EASLEY scribed while in presence of service performed by Amanda Clay APRN on 04/29/22 ([id number])
[2022-04-29] MEDS: CARDIZEM PO SCH (09:05)
[2022-04-29] MEDS: DOXYCYCLINE HYCLATE PO SCH (09:05)
[2022-04-29] MEDS: VITAMIN D PO SCH (09:05)
[2022-04-29] MEDS: FLORASTOR PO SCH (09:05)
[2022-04-29] MEDS: SINGULAIR PO SCH (09:06)
[2022-04-29] MEDS: MUCINEX DM ER 600-30 MG TABLET PO SCH (09:06)
[2022-04-29] MEDS: OMNICEF PO SCH (09:06)
[2022-04-29] MEDS: ZETIA PO SCH (09:07)
[2022-04-29] MEDS: COREG PO SCH ×2 (09:07→16:30)
[2022-04-29] MEDS: LOVENOX SUBCUT SCH (09:08)
[2022-04-29] MEDS: DECADRON IM SCH (09:08)
[2022-04-29] MEDS: TUSSIONEX PO SCH ×2 (09:09→16:30)
[2022-04-29] MEDS: HUMULIN R SUBCUT PRN (09:10)
[2022-04-29 09:29] LABS: ABG O2 HGB 93.3 % (95-100); BEecf 10.8 (-2.0-3.0); COHb 1.7 (0.5-1.5); HCO3 33.3 (21-28); MetHb 1.2 (0-1.5); TCO2 34.5 (19-24); sO2 95.2 % (94-98); tHb 11.5 g/dl (11.7-17.4)
[2022-04-29 09:33] LABS: ABG PH 7.54 (7.35-7.45)
--- NOTE | 2022-04-29 10:42 | PN ---
DATE OF SERVICE: 04/27/22 SUBJECTIVE: 66 year old white female hospitalized with pneumonia. The patient's condition has continuously improved. Her oxygen saturation on room air is 93-94%. Did not have any pleuritic type of pain like used to but still require shot every 6-8 hours. REVIEW OF SYSTEMS: CONSTITUTIONAL: No night sweats. No fatigue, malaise, lethargy. No fever or chills. HEENT: Eyes: No visual changes. No eye pain. No eye discharge. ENT: No runny nose. No epistaxis. No sinus pain. No sore throat. No odynophagia. No congestion. RESPIRATORY: No cough, no congestion. No hemoptysis. Shortness of breath on minimal exertion somewhat better according to her, she has been walking in the hallway. No discomfort with exertion. CARDIOVASCULAR: No angina symptoms. No CHF symptoms. No atypical chest pain for CAD. No palpitations. No PND. No orthopnea. Chest pain with deep breaths. GASTROINTESTINAL: No abdominal pain. No nausea or vomiting. No diarrhea or constipation. No hematemesis. No hematochezia. Appetite has improved some. GENITOURINARY: No urgency. No frequency. No dysuria. No hematuria. No obstructive symptoms. No discharge. No pain. No significant abnormal bleeding. MUSCULOSKELETAL: No musculoskeletal pain; no joint swelling. Right back pain muscles spasm type of symptoms. NEUROLOGICAL: No headache. No neck pain. No syncope. No seizures. No dizziness. PSYCHIATRIC: Not anxious. No depression. No suicidal thoughts. No homicidal thoughts. SKIN: No rash. No lesions. No wounds. ENDOCRINE: No unexplained weight loss. No weight gain. HEMATOLOGIC/LYMPHATIC: No anemia. No purpura. No petechiae. No prolonged or excessive bleeding. No palpable lymph nodes. PHYSICAL EXAMINATION: VITAL SIGNS: Temperature 96.5, pulse 80, respiratory rate 19, blood pressure 148/80 and pulse ox 95%. HEENT: Head normocephalic, atraumatic. Eyes: Extraocular muscles are intact. Pupils are equal, round and reactive to light and accommodation. Ears: No lesions. Nose appeared normal. Throat: No exudate or erythema. NECK: Supple. No JVD, no carotid bruit. No lymphadenopathy or thyromegaly. LUNGS: Mild wheeze expiratory less than yesterday and good air entry. Clear to auscultation. Percussion note normal. Chest symmetrical. HEART: S1, S2, no S3. No murmurs. No cyanosis or clubbing. No ascites. Pulses: Dorsalis pedis and posterior tibial pulses +1 to +2 bilaterally. ABDOMEN: Soft. Nontender. Bowel sounds active. No CVA tenderness. No mass felt. EXTREMITIES: 1+ pitting edema. Full range of motion of all extremities, equal. NEUROLOGIC: No focal deficit. Cranial nerves II through XII are grossly intact. No headache. No double vision. SKIN: Not dry. Intact. Turgor - normal. LYMPHATIC: No palpable lymph nodes/no lymphedema. MUSCULOSKELETAL: Normal joints with no swelling. Muscle tone is normal. LABS: Hgb 10.3, hct 31, WBC 9,300 normal differential, creatinine 0.7, BUN 37, potassium 3.6. pO2 61, pCo2 39, pH 7.43 with 92% saturation on room air. ASSESSMENT: 1. Pneumonia atypical from likely viral etiology seems to be resolving 2. Hypoxic Respiratory failure seems to be resolving 3. Pleuritic pain coming from atelectasis seems to be resolving 4. Generalized edema secondary to steroid and nonsteroidal antiinflammatory combination 5. Hypertension seems to be controlled PLAN: 1. Continue NEBS treatment with DUO NEBS and also with Mucomyst and Pulmicort 2. IV Lasix today 3. Keep the legs elevated 4. Discontinue Prednisone and give 1 cc Decadron at 2 o'clock in the afternoon and 1cc in the morning 5. Elevate the legs 6. Discontinue IV fluids 7. Antibiotics IV has been discontinued the patient is on Omnicef 300mg twice a day and Doxycycline 100mg PO daily CONDITION: Stable. The patient's is in the room, explained about all the findings. 2. 3. TIME SPENT: More than 35 minutes. Plan and coordination of the patient's care discussed in the presence of nurse. JADE
--- NOTE | 2022-04-29 11:29 | PN ---
DATE OF SERVICE: 04/26/22 SUBJECTIVE: 66 year old white female hospitalized with upper lobe pneumonia more like bronchiolitics. The patient's bronchiolitis is extended to the lower zones of the both lung, some atelectasis that gave her pleuritic type of pain which seems to be under control with Dilaudid. The patient had hypoxic respiratory failure with pO2 53 with saturation of 87% yesterday. This morning the patient says that she feels a lot better for the first time. In fact she said that she would like to go home. The patient's oxygen saturation 92-93% on room air today. Says that she is coughing much less, pain is much less. Appetite seems to have improved according to her. REVIEW OF SYSTEMS: CONSTITUTIONAL: No night sweats. No fatigue, malaise, lethargy. No fever or chills. HEENT: Eyes: No visual changes. No eye pain. No eye discharge. ENT: No runny nose. No epistaxis. No sinus pain. No sore throat. No odynophagia. No congestion. RESPIRATORY: No cough, no congestion. No hemoptysis. No shortness of breath. CARDIOVASCULAR: No angina symptoms. No CHF symptoms. No atypical chest pain for CAD. No palpitations. No PND. No orthopnea.Some fluid retention in the legs. GASTROINTESTINAL: No abdominal pain. No nausea or vomiting. No diarrhea or constipation. No hematemesis. No hematochezia. GENITOURINARY: No urgency. No frequency. No dysuria. No hematuria. No obstructive symptoms. No discharge. No pain. No significant abnormal bleeding. MUSCULOSKELETAL: No musculoskeletal pain; no joint swelling. NEUROLOGICAL: No headache. No neck pain. No syncope. No seizures. No dizziness. PSYCHIATRIC: Not anxious. No depression. No suicidal thoughts. No homicidal thoughts. SKIN: No rash. No lesions. No wounds. ENDOCRINE: No unexplained weight loss. No weight gain. HEMATOLOGIC/LYMPHATIC: No anemia. No purpura. No petechiae. No prolonged or excessive bleeding. No palpable lymph nodes. PHYSICAL EXAMINATION: GENERAL: The patient is oriented to time, place and person. VITAL SIGNS: Temperature 96.5, pulse 74, respiratory rate 19, blood pressure 150/74 and pulse ox 94% on 1-2 liters. HEENT: Head normocephalic, atraumatic. Eyes: Extraocular muscles are intact. Pupils are equal, round and reactive to light and accommodation. Ears: No lesions. Nose appeared normal. Throat: No exudate or erythema. NECK: Supple. No JVD, no carotid bruit. No lymphadenopathy or thyromegaly. LUNGS: Decreased breath sounds better air entry than yesterday with mild wheeze, expiratory more on the left than the right. Percussion note normal. Chest symmetrical. HEART: S1, S2, no S3. No murmurs. No cyanosis or clubbing. No ascites. Pulses: Dorsalis pedis and posterior tibial pulses +1 to +2 bilaterally. ABDOMEN: Soft. Nontender. Bowel sounds active. No CVA tenderness. No mass felt. EXTREMITIES: Trace to 1+ pitting edema. Full range of motion of all extremities, equal. NEUROLOGIC: No focal deficit. Cranial nerves II through XII are grossly intact. No headache. No double vision. SKIN: Not dry. Intact. Turgor - normal. LYMPHATIC: No palpable lymph nodes/no lymphedema. MUSCULOSKELETAL: Normal joints with no swelling. Muscle tone is normal. LABS: Hgb 10.6, hct 31, WBC 10,900 normal differential, creatinine 0.7, BUN 34, potassium 3.8. Blood sugar is 200 The patient is on sliding scale ASSESSMENT: 1. Pneumonitis/bronchiolitis with atelectasis ground glass both lower zones seems to be improving. 2. Hypoxic respiratory failure seems to be improving 3. Pleuritic pain seems to be under somewhat control PLAN: 1. The patient is advised to walk 2. Advised spirometer and breathing exercise 3. IV fluids in decreasing amount like 70cc per hour 4. IV Lasix to be given for fluid retention 5. ABG done showed pO2 of 63 with pCO2 normal and normal pH. Oxygen saturation 93%. 6. Decrease the dose of Prednisone 7. Discontinue Vancomycin 8. Exercises discussed 9. The patient is advised to walk This morning before I saw her the patient had already told nurse who has been taking care of her this morning that she is not going to be transferred anywhere, she is feeling a lot better and is ready to go home. I discussed with the patient and she declined transfer anywhere especially [facility]. Clinically there is definitely improvement in the patient's condition. TIME SPENT: More than 35 minutes. Plan and coordination of the patient's care discussed in the presence of nurse. ADDENDUM: An hour or so ago I was called, the patient's systolic blood pressure to be 190, practically asymptomatic. Advised to give Vasotec 1.25mg IV Q 6 hours for systolic blood pressure of 150. Also will start Coreg 3.125mg PO twice a day. Discontinue Vancomycin and Maxipime after that last dose today. The is advised to keep the legs up, Lasix has already been given. Fluid retention from steroid therapy, steroid dose has already been decrease. The patient's saturation is already 93-94% on room air according to Ania, the RN in charge [facility]. JADE
--- NOTE | 2022-04-29 11:43 | PN ---
DATE OF SERVICE: 04/28/22 SUBJECTIVE: The patient was seen and examined with the Nurse Practitioner. Condition is stable. Her blood gasses didn't look good this morning with pO2 50 with pCo2 49, saturation 87%. She is in any distress at all. Blood pressure is within normal range now. Pulses 80 per minute. Oxygen saturation 94-96% on 2 liters. PHYSICAL EXAMINATION: HEENT: Head normocephalic, atraumatic. Eyes: Extraocular muscles are intact. Pupils are equal, round and reactive to light and accommodation. Ears: No lesions. Nose appeared normal. Throat: No exudate or erythema. NECK: Supple. No JVD, no carotid bruit. No lymphadenopathy or thyromegaly. LUNGS: Better air entry with mild expiratory wheeze. Clear to auscultation. Percussion note normal. Chest symmetrical. HEART: S1, S2, no S3. No murmurs. No cyanosis or clubbing. No ascites. Pulses: Dorsalis pedis and posterior tibial pulses +1 to +2 bilaterally. ABDOMEN: Soft. Nontender. Bowel sounds active. No CVA tenderness. No mass felt. EXTREMITIES: No edema. Full range of motion of all extremities, equal. NEUROLOGIC: No focal deficit. Cranial nerves II through XII are grossly intact. No headache. No double vision. SKIN: Not dry. Intact. Turgor - normal. LYMPHATIC: No palpable lymph nodes/no lymphedema. MUSCULOSKELETAL: Normal joints with no swelling. Muscle tone is normal. CONDITION: Stable The patient was explained about bronchiolitis and complications with . The patient declined any thought of even transfer, Chose being at [facility] under co. PLAN: 1. Continue NEBS, inhalers, steroids, antibiotics 2. Start spirometry and percussion 3. Advised to take deep breaths 4. Advised to walk. 5. The patient's edema is much less than before, now lose and tender, swelling left in the thigh area and back area. TIME SPENT: More than 35 minutes. Plan and coordination of the patient's care discussed in the presence of nurse. JADE
[2022-04-29] MEDS: TESSALON PERLES PO PRN (12:32)
[2022-04-29] MEDS ORDERED: DIFLUCAN PO ONE (12:34)
[2022-04-29 15:48] VITALS: BP 143/68; TEMP 98.3
--- NOTE | 2022-04-30 14:52 | DS ---
DATE OF SERVICE: 04/29/22 FINAL DIAGNOSIS: 1. Atypical pneumonia, bronchitis, atelectasis 2. Respiratory failure secondary to atypical pneumonia 3. Pleuritic type pain secondary to bronchiolitis 4. Hypertension 5. Fluid retention from medication 6. History of fibromyalgia 7. History of migraine headache 8. History of dyslipidemia DISCHARGE INSTRUCTIONS: Followup appointment in six days, Thursday, at 10:30. MEDICATIONS AT DISCHARGE: Omnicef 300 PO twice a day for five days Doxycycline 100 mg BID for five days Prednisone 10 BID for three days and one daily for three days Tussionex one teaspoon twice a day for five days Lasix 20 mg PO daily for ten days but 30 day prescription given K-Tab 10 mEq to be taken with Lasix Oxygen 2 liters per cannula Nebulizer at home Patient advised to go to nearest emergency room in case of fever or chills, shortness of breath with saturation below 90%. It is to be noted that patient is up and about for the past day and half with her saturation being anywhere from 93-95% on room air. Arterial blood gases done today showed PO2 of 67 with PCO2 of 39 with normal PH with saturation of 95%. Blood gases were done on room air. HOSPITAL COURSE: 66 year old white female hospitalized with left upper lobe pneumonia which was more like bronchiolitis. CT scan showed that she had some ground glass with bronchiolitis of bases, atypical pneumonia type of picture. Patient's condition initially for 2-3 days was stable then worsened. PO2 dipped down to 49-50. Patient had atelectasis with severe pleuritic pain. She was given Dilaudid and Toradol IV with Tussionex [place] for her cough which eventually helped but with steroid retained a lot of fluid and IV Lasix. Patient's appetite has improved at the time of discharge. She was up and about feeling a lot better. On physical exam the patient had very good air entry with very minimal mild wheeze noted on the left lung. 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 I told her to wear oxygen as needed. She will monitor her oximetry at home. Patient's condition had improved to the point she was ready to be discharged. Patient was constantly made aware of things we had with the insurance company. Patient has been thoroughly explained about the side effects of steroids including osteonecrosis. SPECIFIC ORDERS: Patient advised to rest with leg elevated. Exercises with spirometry discussed. 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 TIME SPENT: 70 minutes JADE
--- NOTE | 2022-04-30 14:56 | PN ---
04/19/22 LEVEL 5 A lot of days where she had Extensive and a lot of time was spent on last four to five days of her hospital stay initially JADE
--- NOTE | 2022-05-01 13:24 | PN ---
DATE OF SERVICE: 04/25/22 SUBJECTIVE: The patient was seen today a 7:45 again at 12 and again at 4:30pm, total time spent close to 2 hours. Talked to the transfer center at [facility], Dr. Angeles. The patient is 66 year old white female hospitalized with atypical pneumonia, bronchiolitis. The patient's condition has progressed but the patient has hypoxemia on room air with oxygen saturation of 87%, FiO2 is 43 with pCo2 42. Pleuritic type of pain is under control with Dilaudid. Requires 1mg of Dilaudid and 15mg of Toradol for pleuritic type of pain. CT scan of the chest showed impression of atypical pneumonia involving lower lobe with atelectasis. The patient is afebrile. Her WBC count is within normal range with borderline after steroids. REVIEW OF SYSTEMS: CONSTITUTIONAL: No night sweats. No fatigue, malaise, lethargy. No fever or chills. HEENT: Eyes: No visual changes. No eye pain. No eye discharge. ENT: No runny nose. No epistaxis. No sinus pain. No sore throat. No odynophagia. No congestion. RESPIRATORY: No cough, no congestion. No hemoptysis. No shortness of breath. CARDIOVASCULAR: No angina symptoms. No CHF symptoms. No atypical chest pain for CAD. No palpitations. No PND. No orthopnea. GASTROINTESTINAL: No abdominal pain. No nausea or vomiting. No diarrhea or constipation. No hematemesis. No hematochezia. GENITOURINARY: No urgency. No frequency. No dysuria. No hematuria. No obstructive symptoms. No discharge. No pain. No significant abnormal bleeding. MUSCULOSKELETAL: No musculoskeletal pain; no joint swelling. NEUROLOGICAL: No headache. No neck pain. No syncope. No seizures. No dizziness. PSYCHIATRIC: Not anxious. No depression. No suicidal thoughts. No homicidal thoughts. SKIN: No rash. No lesions. No wounds. ENDOCRINE: No unexplained weight loss. No weight gain. HEMATOLOGIC/LYMPHATIC: No anemia. No purpura. No petechiae. No prolonged or excessive bleeding. No palpable lymph nodes. PHYSICAL EXAMINATION: GENERAL: The patient is oriented to time, place and person. VITAL SIGNS: Temperature 98.4, pulse 84, respiratory rate 15, blood pressure 120/70 and oxygen saturation 95% on two liters. HEENT: Head normocephalic, atraumatic. Eyes: Extraocular muscles are intact. Pupils are equal, round and reactive to light and accommodation. Ears: No lesions. Nose appeared normal. Throat: No exudate or erythema. NECK: Supple. No JVD, no carotid bruit. No lymphadenopathy or thyromegaly. LUNGS:Decreased breath sounds. Mild expiratory crackles, most on the left than right. Percussion note normal. Chest symmetrical. HEART: S1, S2, no S3. No murmurs. No cyanosis or clubbing. No ascites. Pulses: Dorsalis pedis and posterior tibial pulses +1 to +2 bilaterally. ABDOMEN: Soft. Nontender. Bowel sounds active. No CVA tenderness. No mass felt. EXTREMITIES: Trace edema. Full range of motion of all extremities, equal. NEUROLOGIC: No focal deficit. Cranial nerves II through XII are grossly intact. No headache. No double vision. SKIN: Not dry. Intact. Turgor - normal. LYMPHATIC: No palpable lymph nodes/no lymphedema. MUSCULOSKELETAL: Normal joints with no swelling. Muscle tone is normal. ASSESSMENT: 1. Respiratory failure secondary atypical pneumonia with bronchiolitis PLAN: 1. Give the patient 2-3 liters of oxygen. 2. Continue steroids and antibiotics 3. So far the patient has been given Cephalosporins like Doxycycline. She already got two doses of Azithromycin 4. The patient after long discussion agreed to transfer to [facility]. She doesn't want to go to [facility] but in discussion she also agreed. Both centers were called by Sandra, Electronics Department Manager, talked to the physician at [facility] who indicated that there is regular medical floor bed, requiring intensive care treatment and is what she is going to need so he declined the transfer. There is no bed at [facility]. The patient and the both declined to be transferred to any other hospital like [place] or [place], [place]. Declined any other places; [place], [place], [place] etc. In fact the patient indicated that she insurance doesn't pay for her stay which is in question we will let her go and management it. This morning the insurance companies have been called but they haven't returned the call about approving today today. Indicated that there no need for her to worry about it because her condition has worsened and that shouldn't be any problem of insurance paying for her stay. Later on at 7pm after nurseAnia had indicated that Selin should be notifying if there is an opening for intensive care, we could transfer her at any time. The patient's over all condition is stable. She still has pain from coughing, more or less controlled with just a 1mg of Dilaudid mixed with Toradol 15mg IV Q 6 hourly. Deep breathing exercises discussed with the patient. The patient was given IV Lasix for fluid retention and steroids. The patient's oral intake is acceptable. The patient is going to be continued on NEBS treatment. The patient's prognosis is guarded. CONDITION: Stable for now. TIME SPENT: More than 35 minutes. Plan and coordination of the patient's care discussed in the presence of nurse. JADE
== END 2022-04-29 17:30 | disposition home or self-care (01) | DRG 193 ==
LOC: ED 19:51 → MEDSURG A 22:34
PROVIDERS: ADMIT Internal Medicine; ATTEND Internal Medicine
DX: R53.1 Weakness; E78.5 Hyperlipidemia, unspecified; J44.0 Chronic obstructive pulmonary disease with (acute) lower respiratory infection; Z79.899 Other long term (current) drug therapy; I10 Essential (primary) hypertension; K21.9 Gastro-esophageal reflux disease without esophagitis; Z20.822 Contact with and (suspected) exposure to COVID-19; J96.01 Acute respiratory failure with hypoxia; R60.9 Edema, unspecified; E11.65 Type 2 diabetes mellitus with hyperglycemia; J12.9 Viral pneumonia, unspecified